=== PATIENT | female | born 1960 | race Caucasian/White ===

== ENCOUNTER → 2019-03-14 08:22 | Outpatient (BNVA) | payer MEDICAID, SELFPAY | PROVIDERS: Family Provider Family Medicine; PCP Family Medicine; Visit Provider Nurse Practitioner Psychiatric/Mental Health | DX: F31.75 Bipolar disorder, in partial remission, most recent episode depressed (principal); F41.9 Anxiety disorder, unspecified; F43.12 Post-traumatic stress disorder, chronic | CPT/HCPCS: 99214 ==

== ENCOUNTER → 2019-04-04 07:51 | Outpatient (BNVA) | payer MEDICAID, SELFPAY | PROVIDERS: Family Provider Family Medicine; PCP Family Medicine; Visit Provider Anesthesiology | DX: M47.816 Spondylosis without myelopathy or radiculopathy, lumbar region (principal); M46.1 Sacroiliitis, not elsewhere classified; M25.551 Pain in right hip; M25.552 Pain in left hip; G43.909 Migraine, unspecified, not intractable, without status migrainosus; Z79.891 Long term (current) use of opiate analgesic | CPT/HCPCS: 99214 ==

== ENCOUNTER → 2019-05-16 08:21 | Outpatient (BNVA) | payer MEDICAID, SELFPAY | PROVIDERS: Family Provider Family Medicine; PCP Family Medicine; Visit Provider Nurse Practitioner Psychiatric/Mental Health | DX: F31.75 Bipolar disorder, in partial remission, most recent episode depressed (principal); F41.9 Anxiety disorder, unspecified; F43.12 Post-traumatic stress disorder, chronic | CPT/HCPCS: 99213 ==

== ENCOUNTER → 2019-07-11 08:03 | Outpatient (BNVA) | payer MEDICAID, SELFPAY | PROVIDERS: Family Provider Family Medicine; PCP Family Medicine; Visit Provider Nurse Practitioner Psychiatric/Mental Health | DX: F31.75 Bipolar disorder, in partial remission, most recent episode depressed (principal); F41.9 Anxiety disorder, unspecified; F43.12 Post-traumatic stress disorder, chronic | CPT/HCPCS: 99212 ==

== ENCOUNTER → 2019-08-01 07:55 | Outpatient (BNVA) | payer MEDICAID, SELFPAY | PROVIDERS: Family Provider Family Medicine; PCP Family Medicine; Visit Provider Anesthesiology | DX: M54.41 Lumbago with sciatica, right side (principal); M54.42 Lumbago with sciatica, left side; M47.816 Spondylosis without myelopathy or radiculopathy, lumbar region; M54.2 Cervicalgia; Z79.891 Long term (current) use of opiate analgesic | CPT/HCPCS: 99214 ==

== ENCOUNTER → 2019-09-27 08:32 | Outpatient (BNVA) | payer MEDICAID, SELFPAY | PROVIDERS: Family Provider Family Medicine; PCP Family Medicine; Visit Provider Anesthesiology | DX: M54.42 Lumbago with sciatica, left side (principal); M54.41 Lumbago with sciatica, right side; M47.816 Spondylosis without myelopathy or radiculopathy, lumbar region; M54.2 Cervicalgia; Z79.891 Long term (current) use of opiate analgesic | CPT/HCPCS: 99213; 99214 ==

== ENCOUNTER → 2019-10-05 07:53 | Outpatient (BNVA) | payer MEDICAID, SELFPAY | PROVIDERS: Family Provider Family Medicine; PCP Family Medicine; Visit Provider Nurse Practitioner Psychiatric/Mental Health | DX: F31.75 Bipolar disorder, in partial remission, most recent episode depressed (principal); F43.12 Post-traumatic stress disorder, chronic; F41.9 Anxiety disorder, unspecified | CPT/HCPCS: 99212 ==

== ENCOUNTER → 2019-11-29 14:57 | Outpatient (BNVA) | payer MEDICAID, SELFPAY | PROVIDERS: Family Provider Family Medicine; PCP Family Medicine; Visit Provider Nurse Practitioner Family | DX: J02.9 Acute pharyngitis, unspecified (principal) | CPT/HCPCS: 87071; 87880 ==

== ENCOUNTER → 2019-12-01 09:00 | Outpatient (BNVA) | payer MEDICAID, SELFPAY | PROVIDERS: Family Provider Family Medicine; PCP Family Medicine; Visit Provider Nurse Practitioner Family | DX: Z11.59 Encounter for screening for other viral diseases (principal); J02.9 Acute pharyngitis, unspecified | CPT/HCPCS: 87635 ==

== ENCOUNTER → 2019-12-15 09:46 | Outpatient (BNVA) | payer MEDICAID, SELFPAY | PROVIDERS: Family Provider Family Medicine; PCP Family Medicine; Visit Provider Anesthesiology | DX: M47.816 Spondylosis without myelopathy or radiculopathy, lumbar region (principal); M54.2 Cervicalgia; Z79.891 Long term (current) use of opiate analgesic | CPT/HCPCS: 99213; 99214 ==

== ENCOUNTER → 2019-12-28 08:44 | Outpatient (BNVA) | payer MEDICAID, SELFPAY | PROVIDERS: Family Provider Family Medicine; PCP Family Medicine; Visit Provider Nurse Practitioner Psychiatric/Mental Health | DX: F31.75 Bipolar disorder, in partial remission, most recent episode depressed (principal); F41.9 Anxiety disorder, unspecified; F43.12 Post-traumatic stress disorder, chronic | CPT/HCPCS: 99212 ==

== ENCOUNTER → 2020-01-15 15:04 | Outpatient (BNVA) | payer MEDICAID, SELFPAY | PROVIDERS: Family Provider Family Medicine; PCP Family Medicine; Visit Provider Nurse Practitioner Family | DX: R42 Dizziness and giddiness (principal) | CPT/HCPCS: 80053; 85025 ==

== ENCOUNTER → 2020-02-14 08:06 | Outpatient (BNVA) | payer MEDICAID, SELFPAY | PROVIDERS: Family Provider Family Medicine; PCP Family Medicine; Visit Provider Anesthesiology | DX: G89.29 Other chronic pain (principal); M47.816 Spondylosis without myelopathy or radiculopathy, lumbar region; M25.551 Pain in right hip; M25.552 Pain in left hip; M54.2 Cervicalgia; G43.809 Other migraine, not intractable, without status migrainosus; M54.9 Dorsalgia, unspecified; Z79.891 Long term (current) use of opiate analgesic | CPT/HCPCS: 99214 ==

== ENCOUNTER → 2020-03-21 08:51 | Outpatient (BNVA) | payer MEDICAID, SELFPAY | PROVIDERS: Family Provider Family Medicine; PCP Family Medicine; Visit Provider Nurse Practitioner Psychiatric/Mental Health | DX: F31.75 Bipolar disorder, in partial remission, most recent episode depressed (principal); F41.9 Anxiety disorder, unspecified; F43.12 Post-traumatic stress disorder, chronic | CPT/HCPCS: 99213 ==

== ENCOUNTER → 2020-04-12 07:53 | Outpatient (BNVA) | payer MEDICAID, SELFPAY | PROVIDERS: Family Provider Family Medicine; PCP Family Medicine; Visit Provider Anesthesiology | DX: G89.29 Other chronic pain (principal); M47.816 Spondylosis without myelopathy or radiculopathy, lumbar region; M54.2 Cervicalgia; M54.9 Dorsalgia, unspecified; M25.551 Pain in right hip; M25.552 Pain in left hip; G43.809 Other migraine, not intractable, without status migrainosus; Z79.891 Long term (current) use of opiate analgesic | CPT/HCPCS: 99214 ==

== ENCOUNTER → 2020-06-11 09:12 | Outpatient (BNVA) | payer MEDICAID, SELFPAY | PROVIDERS: Family Provider Family Medicine; PCP Family Medicine; Visit Provider Anesthesiology | DX: G89.29 Other chronic pain (principal); M47.816 Spondylosis without myelopathy or radiculopathy, lumbar region; M54.9 Dorsalgia, unspecified; M54.2 Cervicalgia; G43.809 Other migraine, not intractable, without status migrainosus; Z79.891 Long term (current) use of opiate analgesic | CPT/HCPCS: 99214 ==

== ENCOUNTER → 2020-06-13 08:30 | Outpatient (BNVA) | payer MEDICAID, SELFPAY | PROVIDERS: Family Provider Family Medicine; PCP Family Medicine; Visit Provider Nurse Practitioner Psychiatric/Mental Health | DX: F31.75 Bipolar disorder, in partial remission, most recent episode depressed (principal); F41.9 Anxiety disorder, unspecified; F43.12 Post-traumatic stress disorder, chronic | CPT/HCPCS: 99213 ==

== ENCOUNTER → 2020-07-26 14:43 | Outpatient (BNVA) | payer MEDICAID, SELFPAY | PROVIDERS: Family Provider Family Medicine; PCP Family Medicine; Visit Provider Nurse Practitioner Family | DX: T14.8XXA Other injury of unspecified body region, initial encounter (principal); W55.01XA Bitten by cat, initial encounter; Z68.32 Body mass index [BMI] 32.0-32.9, adult; L03.90 Cellulitis, unspecified; A28.0 Pasteurellosis | CPT/HCPCS: 73130 ==

== ENCOUNTER → 2020-07-31 08:27 | Outpatient (BNVA) | payer MEDICAID, SELFPAY | PROVIDERS: Family Provider Family Medicine; PCP Family Medicine; Visit Provider Nurse Practitioner | DX: G89.29 Other chronic pain (principal); M25.551 Pain in right hip; M25.552 Pain in left hip; M54.2 Cervicalgia; M47.816 Spondylosis without myelopathy or radiculopathy, lumbar region; M54.9 Dorsalgia, unspecified; M46.1 Sacroiliitis, not elsewhere classified; G43.809 Other migraine, not intractable, without status migrainosus; Z79.891 Long term (current) use of opiate analgesic | CPT/HCPCS: 99212; 99213 ==

== ENCOUNTER → 2020-09-05 07:29 | Outpatient (BNVA) | payer MEDICAID, SELFPAY | PROVIDERS: Family Provider Family Medicine; PCP Family Medicine; Visit Provider Nurse Practitioner Psychiatric/Mental Health | DX: F31.75 Bipolar disorder, in partial remission, most recent episode depressed (principal); F41.9 Anxiety disorder, unspecified; F43.12 Post-traumatic stress disorder, chronic; Z79.899 Other long term (current) drug therapy | CPT/HCPCS: 99213 ==

== ENCOUNTER → 2020-10-02 09:15 | Outpatient (BNVA) | payer MEDICAID, SELFPAY | PROVIDERS: Family Provider Family Medicine; PCP Family Medicine; Visit Provider Nurse Practitioner Psychiatric/Mental Health | DX: Z79.899 Other long term (current) drug therapy (principal) | CPT/HCPCS: 80061; 83036 ==

== ENCOUNTER → 2020-10-11 08:22 | Outpatient (BNVA) | payer MEDICAID, SELFPAY | PROVIDERS: Family Provider Family Medicine; PCP Family Medicine; Visit Provider Nurse Practitioner | DX: G89.29 Other chronic pain (principal); M47.816 Spondylosis without myelopathy or radiculopathy, lumbar region; M54.2 Cervicalgia; G43.809 Other migraine, not intractable, without status migrainosus; F17.210 Nicotine dependence, cigarettes, uncomplicated; Z79.891 Long term (current) use of opiate analgesic; Z71.6 Tobacco abuse counseling | CPT/HCPCS: 99214 ==

== ENCOUNTER 2020-10-28 11:06 | Outpatient (CLI) | payer MEDICAID, SELFPAY ==
--- NOTE | 2020-10-28 11:45 | MR_ITS ---
WS: [id number] MRI LUMBAR SPINE NONCONTRAST HISTORY: M47.816 - Spondylosis without myelopathy or radiculopathy... COMPARISON: 06/11/2014 TECHNIQUE: Sagittal and axial multisequence imaging is submitted. Degenerative disc disease and osteophytosis in the mid cervical spine. L4 anterolisthesis by 6 mm similar to the prior examination. No marrow edema or fracture. Several trip ign vertebral body hemangiomas are present including T12, L2 and T9. Very mild disc space narrowing and desiccation at L4-5. Conus terminates normally at L1-2 disc level. L1-L2: Normal. L2-L3: Very minimal ligamentum flavum hypertrophy and facet arthritis. No significant stenosis. L3-L4: Very slight annular disc bulging and facet arthritis. Very mild narrowing of the foramen. L4-L5: L4 anterolisthesis causing unroofing of the disc. Mild annular disc bulging with mild to moder ate ligamentum flavum and facet arthritis. Bilateral pars defects at L4. Very mild narrowing of the f oramen and subarticular recesses. L5-S1: Mild annular disc bulging extending asymmetrically to the RIGHT. There is very slight contact on the RIGHT S1 nerve root but no displacement. Very mild RIGHT foraminal narrowing. MR/MR lumbar spine wo con* [id number] IMPRESSION: 1. Grade 1 L4 spondylolisthesis and L4 spondylolysis. Very similar to the prio r study from 06/11/2014. 2. Mild bilateral foraminal subarticular recess narrowing at L4-5. 3. Small RIGHT foraminal narrowing and slight contact on the RIGHT S1 nerve ro ot at L5-S1. 4. No high-grade stenosis.
== END 2020-10-28 11:07 | disposition home or self-care (01) ==
LOC: RADSHAW 11:11
PROVIDERS: PCP Family Medicine; Visit Provider Nurse Practitioner
DX: M47.816 Spondylosis without myelopathy or radiculopathy, lumbar region (principal); M43.16 Spondylolisthesis, lumbar region
CPT/HCPCS: 72148

== ENCOUNTER → 2020-11-26 13:06 | Outpatient (BNVA) | payer MEDICAID, SELFPAY | PROVIDERS: PCP Family Medicine; Visit Provider Anesthesiology | DX: G89.29 Other chronic pain (principal); M54.2 Cervicalgia; G43.809 Other migraine, not intractable, without status migrainosus; M47.816 Spondylosis without myelopathy or radiculopathy, lumbar region; F17.210 Nicotine dependence, cigarettes, uncomplicated; Z79.891 Long term (current) use of opiate analgesic | CPT/HCPCS: 99214 ==

== ENCOUNTER → 2020-12-05 07:55 | Outpatient (BNVA) | payer MEDICAID, SELFPAY | PROVIDERS: Family Provider Family Medicine; PCP Family Medicine; Visit Provider Nurse Practitioner Psychiatric/Mental Health | DX: F31.75 Bipolar disorder, in partial remission, most recent episode depressed (principal); F41.9 Anxiety disorder, unspecified; F43.12 Post-traumatic stress disorder, chronic | CPT/HCPCS: 99213 ==

== ENCOUNTER → 2021-02-27 08:40 | Outpatient (BNVA) | payer MEDICAID, SELFPAY | PROVIDERS: Family Provider Family Medicine; PCP Family Medicine; Visit Provider Nurse Practitioner Psychiatric/Mental Health | DX: F31.75 Bipolar disorder, in partial remission, most recent episode depressed (principal); F41.9 Anxiety disorder, unspecified; F43.12 Post-traumatic stress disorder, chronic | CPT/HCPCS: 99213 ==

== ENCOUNTER → 2021-03-12 07:50 | Outpatient (BNVA) | payer MEDICAID, SELFPAY | PROVIDERS: Family Provider Family Medicine; PCP Family Medicine; Visit Provider Anesthesiology | DX: G89.29 Other chronic pain (principal); M54.50 Low back pain, unspecified; G43.809 Other migraine, not intractable, without status migrainosus; F17.210 Nicotine dependence, cigarettes, uncomplicated; Z79.891 Long term (current) use of opiate analgesic | CPT/HCPCS: 99214 ==

== ENCOUNTER → 2021-04-15 08:25 | Outpatient (BNVA) | payer MEDICAID, SELFPAY | PROVIDERS: Family Provider Family Medicine; PCP Family Medicine; Visit Provider Nurse Practitioner Psychiatric/Mental Health | DX: F31.75 Bipolar disorder, in partial remission, most recent episode depressed (principal); F41.9 Anxiety disorder, unspecified; F43.12 Post-traumatic stress disorder, chronic | CPT/HCPCS: 99213 ==

== ENCOUNTER 2021-05-22 09:05 | Outpatient (CLI) | payer OTHER, SELFPAY ==
--- NOTE | 2021-05-22 09:38 | XR_ITS ---
WS: [id number] XR cervical spine 3V* [id number] REASON FOR EXAM: NECK PAIN FINDINGS: Normal lordosis of the cervical spine on the lateral view. No significant vertebral body compression deformity or focal lesion. Normal odontoid. Significant narrowing of the intervertebral disc spaces at C3-C4, C4-C5, C5-C6, and C6-C7. There is 2 mm of anterolisthesis of C5 in relation to C4 and C6 in relation to C5. XR/XR cervical spine 3V* [id number] IMPRESSION: Degenerative spondylosis as above.
--- NOTE | 2021-05-22 09:38 | XR_ITS ---
WS: [id number] XR lumbar spine 2-3V* [id number] REASON FOR EXAM: BACK PAIN FINDINGS: Mild rotatory scoliosis convex left on the AP. Mild straightening of the upper lumbar lordosis on the lateral. Mild biconcave compression deformities throughout the lumbar spine. Mild progression of the biconcave deformities compared to the previous examination of 06/11/2014. No focal vertebral body lesion. Moderate narrowing of the L4-L5 disc space. No spondylolysis. 8 to 9 mm of anterolisthesis of L4 on L5. Degenerative change in the facet joints L3-S1. Previous surgery L4-S1 with alteration of posterior elements. XR/XR lumbar spine 2-3V* [id number] IMPRESSION: Degenerative spondylosis of the lumbar spine as above.
== END 2021-05-22 09:06 | disposition home or self-care (01) ==
PROVIDERS: PCP Family Medicine; Visit Provider Dermatology
DX: Z02.71 Encounter for disability determination (principal); M47.816 Spondylosis without myelopathy or radiculopathy, lumbar region; M47.812 Spondylosis without myelopathy or radiculopathy, cervical region
CPT/HCPCS: 72040; 72100

== ENCOUNTER → 2021-06-19 13:37 | Outpatient (BNVA) | payer MEDICAID, SELFPAY | PROVIDERS: PCP Family Medicine; Visit Provider Family Medicine | DX: M54.2 Cervicalgia (principal); M54.9 Dorsalgia, unspecified; G89.29 Other chronic pain; G43.809 Other migraine, not intractable, without status migrainosus | CPT/HCPCS: 80307 ==

== ENCOUNTER → 2021-06-30 09:23 | Outpatient (BNVA) | payer MEDICAID, SELFPAY | PROVIDERS: PCP Family Medicine; Visit Provider Nurse Practitioner Family | DX: R30.0 Dysuria (principal) | CPT/HCPCS: 81000; 81003; 87077; 87086; 87184 ==

== ENCOUNTER → 2021-07-03 10:00 | Outpatient (BNVA) | payer MEDICAID, SELFPAY | PROVIDERS: PCP Family Medicine; Visit Provider Nurse Practitioner Psychiatric/Mental Health | DX: F31.75 Bipolar disorder, in partial remission, most recent episode depressed (principal); F41.9 Anxiety disorder, unspecified; F43.12 Post-traumatic stress disorder, chronic; M54.2 Cervicalgia; M54.9 Dorsalgia, unspecified; G89.29 Other chronic pain | CPT/HCPCS: 99213 ==

== ENCOUNTER → 2021-07-10 09:33 | Outpatient (BNVA) | payer MEDICAID, SELFPAY | PROVIDERS: PCP Family Medicine; Visit Provider Nurse Practitioner Family | DX: R30.0 Dysuria (principal) | CPT/HCPCS: 81003 ==

== ENCOUNTER → 2021-10-02 09:28 | Outpatient (BNVA) | payer MEDICAID, SELFPAY | PROVIDERS: PCP Family Medicine; Visit Provider Nurse Practitioner Psychiatric/Mental Health | DX: Z79.899 Other long term (current) drug therapy (principal); F31.75 Bipolar disorder, in partial remission, most recent episode depressed; F41.9 Anxiety disorder, unspecified | CPT/HCPCS: 80053; 80061; 83036 ==

== ENCOUNTER → 2022-09-08 14:22 | Outpatient (BNVA) | payer MEDICAID, SELFPAY | PROVIDERS: PCP Family Medicine; Visit Provider Nurse Practitioner Psychiatric/Mental Health | DX: Z79.899 Other long term (current) drug therapy (principal) | CPT/HCPCS: 80053; 80061; 83036 ==

== ENCOUNTER 2023-03-18 07:35 | Outpatient (CLI) | payer MEDICAID, SELFPAY ==
--- NOTE | 2023-03-18 07:44 | MR_ITS ---
WS: [id number] MRI LUMBAR SPINE NONCONTRAST TECHNIQUE: Sagittal T1, T2 and STIR imaging. Axial T1 and T2 imaging. CLINICAL INFORMATION: DDD, LUMBAR REGION COMPARISON: MRI 2020. FINDINGS: Mild lumbar curve. Grade 1 anterolisthesis L4 on L5 measuring 5 mm. This is stable compared to previo us. Chronic spondylolysis at this level. No high-grade central canal stenosis. 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 L1-L2: Normal. L2-L3: Mild facet arthropathy. Spinal canal and foramen are patent. L3-L4: No significant disc bulging. Mild facet arthropathy. Spinal canal is patent. Mild LEFT bony fo raminal narrowing. L4-L5: Grade 1 anterolisthesis appears stable compared to previous. Chronic spondylolysis. Slight eff acement of ventral thecal sac. Moderate facet arthropathy. Spinal canal and foramen are patent. L5-S1: Mild annular bulging with slight encroachment on the traversing RIGHT S1 nerve root. Moderate facet arthropathy. Spinal canal and foramen are patent. Visualized pelvic bony structures: Normal. Paravertebral soft tissues: Normal. Tarlov cyst in the sacrum. Incidental hemangiomas T12, L1, and L2. IMPRESSION: 1. Grade 1 anterolisthesis L4 on L5 measuring 5 to 6 mm is stable compared to previous. Chronic bila teral spondylolysis unchanged. 2. Mild LEFT L3-4 bony foraminal narrowing with moderate facet arthropathy. 3. Moderate facet arthropathy L2-L3 L3-L4 L4-L5 and L5-S1
== END 2023-03-18 07:36 | disposition home or self-care (01) ==
LOC: RAD 07:36
PROVIDERS: PCP Family Medicine; Visit Provider General Practice
DX: M51.36 Other intervertebral disc degeneration, lumbar region (principal); M47.817 Spondylosis without myelopathy or radiculopathy, lumbosacral region; M48.061 Spinal stenosis, lumbar region without neurogenic claudication
CPT/HCPCS: 72148

== ENCOUNTER → 2023-03-29 08:49 | Outpatient (BNVA) | payer MEDICAID, SELFPAY | PROVIDERS: PCP Family Medicine; Visit Provider Nurse Practitioner Family | DX: E78.5 Hyperlipidemia, unspecified (principal) | CPT/HCPCS: 80053; 80061 ==

== ENCOUNTER → 2023-05-17 09:01 | Outpatient (BNVA) | payer MEDICAID, SELFPAY | PROVIDERS: PCP Nurse Practitioner Family; Visit Provider Nurse Practitioner Family | DX: R05.9 Cough, unspecified (principal); R06.02 Shortness of breath | CPT/HCPCS: 71046 ==

== ENCOUNTER 2023-07-27 19:50 | Emergency (ER) | payer MEDICAID, SELFPAY ==
[2023-07-27 19:52] VITALS: BP 116/83; PULSE 106; RESP 18; TEMP 36.7; O2SAT 93; BMI 33.0
--- NOTE | 2023-07-27 19:53 | ECG_ITS ---
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 Measurements Intervals [place] Rate: 93 P: 41 VT: 147 QRS: 2 QRSD: 93 T: 50 QT: 376 QTc: 470 Interpretive Statements SINUS RHYTHM LOW QRS VOLTAGE IN PRECORDIAL LEADS [QRS DEFLECTION < 1.0 mV IN CHEST LEADS] Compared to ECG 10/05/2018 09:59:35 Low QRS voltage now present Incomplete right bundle-branch block no longer present Electronically Signed On 07-28-2023 10:32:19 CDT by Roni Grant M.D. [id number]
--- NOTE | 2023-07-27 19:54 | XRR_ITS ---
PROCEDURE INFORMATION: Exam: XR Chest Exam date and time: 07/27/2023 8:06 PM Age: 63 years old Clinical indication: Shortness of breath; Additional info: SOB TECHNIQUE: Imaging protocol: Radiologic exam of the chest. Views: 1 view. COMPARISON: CR XR chest 2V* [id number] 05/17/2023 9:15 AM FINDINGS: Lungs: Mild interstitial opacities in the lung bases. No consolidation. Pleural spaces: Unremarkable. No pleural effusion. No pneumothorax. Heart/Mediastinum: Unremarkable. No cardiomegaly. Diaphragm: Mild elevation of the left diaphragm. Bones/joints: Unremarkable. XR/XR chest 1V portable [id number] IMPRESSION: Suspected mild interstitial pulmonary edema.
[2023-07-27 19:56] VITALS: BP 116/83; PULSE 107; RESP 17; O2SAT 93
--- NOTE | 2023-07-27 20:03 | ED_ITS ---
HPI - SOB/Dyspnea 2 General: Chief Complaint: Shortness of Breath/Dyspnea Stated Complaint: RESP. DISTRESS Time Seen by Provider: 07/27/23 19:51 Source: patient and EMS Mode of arrival: EMS Limitations: no limitations History of Present Illness: HPI Narrative: 63-year-old female history of show cutan eous states she has been having shortness of breath for the last 3 to 4 weeks. She states that she having some right arm pain area that was worse with touch and palpation that went away on its own but she continue have some dyspnea she did receive a breathing treatment and Solu-Medrol around feels improved. Denies any cough or fever Associated symptoms: Deny abdominal pain, chest pain, fever(s), nausea or vomiting Review of Systems 2 Const: Denies: fever(s) or chills ENMT: Denies: throat pain or dental pain Card: Denies: chest pain Resp: Reports: dyspnea GI: Denies: abdominal pain, nausea, vomiting or diarrhea : Denies: dysuria Musc: Denies: neck pain or back pain Skin/Breast: Denies: rash Neuro: Denies: headache(s) PFSH ED 2 PFSH: Medical History Bipolar disorder, in full remission, most recent episode depressed Psychiatric care Cervicogenic migraine Chronic hip pain Chronic neck and back pain Encounter for long-term (current) use of NSAIDs Encounter for long-term opiate analgesic use Acute midline low back pain Acute hip pain, bilateral Acute neck pain Arthritis of facet joint of lumbar spine Sacroiliitis Surgical History Hx of hysterectomy, total History of carpal tunnel surgery Family History Other Cancer Diabetes Lung disease Social History Smoking and tobacco/nicotine status: current every day tobacco/nicotine user cigarettes Packs smoked per day: 0.5 Years cigarettes smoked: 20 Quit status (tobacco/nicotine): has tried quititng Second hand smoke exposure: No Alcohol intake: never Substance/Drug Use: never Physical Exam 2 Const: COMMON NORMALS: no acute distress, patient oriented x3 and healthy appearing HENMT: COMMON NORMALS: normocephalic and atraumatic HEAD & SCALP: n ormocephalic and atraumatic Eye: COMMON NORMALS: Equal, round and reactive pupils present and EOMs intact bilaterally PUPIL: Yes Equal, round and reactive pupils present Neck/C-Spine: COMMON NORMALS: full ROM and supple Chest: COMMONS NORMALS: normal inspection of the chest and normal palpation of entire chest wall Resp: COMMON NORMALS: normal respiratory effort, No retractions, No use of accessory muscles and clear to auscultation bilaterally AUSCULTATION: clear to auscultation bilaterally Cardio: COMMON NORMALS: regular rate, regular rhythm and No murmurs present (Cardio) RATE: regular rate RHYTHM: regular rhythm Extremity: COMMON NORMALS: normal to inspection and full ROM Neuro: COMMON NORMALS: patient oriented x3, moves all extremities and no focal motor deficits Psych: COMMON NORMALS: mental status grossly normal, Normal thought process present and cooperative THOUGHT PROCESS: Normal thought process present Skin: COMMON NORMALS: no rashes or lesions noted and no wounds GENERAL SKIN EXAM: no rashes or lesions noted Course 2 Vital Signs: Vital signs: Vital Signs Temperature 98.1 F 07/27/23 19:52 Pulse Rate 89 07/27/23 20:56 Respiratory Rate 15 07/27/23 20:56 Blood Pressure 120/90 07/27/23 20:56 Pulse Oximetry 90 07/27/23 20:56 Oxygen Delivery Me thod Room Air 07/27/23 20:56 MDM - SOB/Dyspnea Medical Decision Making Patient presents here with cough congestion likely bronchitis blood work here is all negative she is well-appearing here she stable for discharge she is follow-up with PCP and return if worsening she understands agrees to plan she has no signs of ACS or pulmonary embolism Medical Records I reviewed the patient's medical records. Lab Data I reviewed the patient's lab results. 07/27/23 20:04 07/27/23 20:04 Labs/Radiology: Radiology Impressions Chest X-Ray 07/27/23 19:54 IMPRESSION: Suspected mild interstitial pulmonary edema. Laboratory Results WBC 7.87 10^3/uL (3.29-11.43) 07/27/23 20:04 RBC 4.76 10^6/uL (3.85-5.65) 07/27/23 20:04 Hgb 14.00 g/dL (11.27-16.99) 07/27/23 20:04 Hct 42.1 % (36-47) 07/27/23 20:04 MCV 88.4 fl (85-98) 07/27/23 20:04 MCH 29.4 pg (27-33) 07/27/23 20:04 MCHC 33.3 g/dL (30-55) 07/27/23 20:04 RDW 12.4 % (12.1-15.1) 07/27/23 20:04 Plt Count 266 10^3/cmm (157-399) 07/27/23 20:04 MPV 8.9 fL (7.4-10.4) 07/27/23 20:04 Neut % (Auto) 53.8 % 07/27/23 20:04 Lymph % (Auto) 37.9 % 07/27/23 20:04 [place] % (Auto) 6.2 % 07/27/23 20:04 Eos % (Auto) 1.5 % 07/27/23 20:04 Baso % (Auto) 0.5 % 07/27/23 20:04 Neut # (Auto) 4.23 10^3/uL (1.8-7.7) 07/27/23 20:04 Lymph # (Auto) 3.0 10^3/uL (0.8-4.8) 07/27/23 20:04 [place] # (Auto) 0.5 10^3/uL (0.2-0.9) 07/27/23 20:04 Eos # (Auto) 0.1 10^3/uL (0.0-0.8) 07/27/23 20:04 Baso # (Auto) 0.0 10^3/uL (0.0-0.1) 07/27/23 20:04 Nucleated RBC % (auto) 0 % 07/27/23 20:04 Nucleated RBCs # 0.0 /100WBC 07/27/23 20:04 PT 13.50 SECONDS (12.1-14.9) 07/27/23 20:04 INR 1.00 (0.8-1.2) 07/27/23 20:04 Sodium 136 mmol/L (136-145) 07/27/23 20:04 Potassium 3.5 mmol/L (3.5-5.1) 07/27/23 20:04 Chloride 100 mmol/L (98-107) 07/27/23 20:04 Carbon Dioxide 25 mmol/L (22-29) 07/27/23 20:04 Anion Gap 14.5 (5-19) 07/27/23 20:04 BUN 11 mg/dL (8-23) 07/27/23 20:04 Creatinine 0.6 mg/dL (0.5-0.9) 07/27/23 20:04 GFR Calculation 101.0 mL/min (90-130) 07/27/23 20:04 Glucose 100 mg/dL (65-115) 07/27/23 20:04 Calculated Osmolality 281 mOsm/kg (285-295) L 07/27/23 20:04 Calcium 8.7 mg/dL (8.5-10.5) 07/27/23 20:04 Total Bilirubin 0.3 mg/dL (0.15-1.2) 07/27/23 20:04 AST 20 U/L (0-32) 07/27/23 20:04 ALT 26 U/L (0-33) 07/27/23 20:04 Alkaline Phosphatase 104 U/L (35-105) 07/27/23 20:04 Total Protein 7.0 g/dL (6.6-8.7) 07/27/23 20:04 Albumin 3.7 g/dL (3.5-5.2) 07/27/23 20:04 Globulin 3.3 g/dL (1.3-4.6) 07/27/23 20:04 Lipase 50 U/L (13-60) 07/27/23 20:04 All radiology interpretation(s) finalized by discharge EKG Data EKG 1: I personally reviewed and interpreted this EKG as follows: EKG Interpretation Date: 07/27/23 EKG interpretation time: 20:22 Interpretation: nsr hr [address] or t wave abnormalities qrs 93 qtc 427 Discharge Plan Discharge Patient Disposition: Home Clinical Impression: Bronchitis, COPD (chronic obstructive pulmonary disease) Condition: Stable Prescriptions: New Zithromax Z-Edis 250 mg tablet See Rx Instructions PO .COMPLEX Qty: 6 0RF Rx Instructions: take 500 mg today (day 1), then 250 mg for 4 days (days 2-5) prednisone 50 mg tablet 50 mg PO DAILY Qty: 5 0RF No Action epinephrine 0.3 mg/0.3 mL auto-injector 0.3 mg IM ONCE baclofen 20 mg tablet 20 mg PO TID PRN (Reason: spasms) 30 Days Qty: 90 0RF tramadol 50 mg tablet 100 mg PO QID PRN (Reason: pain) 30 Days Qty: 180 0RF Rx Instructions: fill on or after 03/20/21 and 04/18/21 prazosin 2 mg capsule 2 mg PO .QHS Qty: 30 1RF Rx Instructions: take one capsule by mouth daily at bedtime buspirone 10 mg tablet 20 mg PO BID 30 Days Qty: 120 1RF Rx Instructions: Take two tablets by mouth twice a day-morning and afternoon venlafaxine 75 mg tablet 150 mg PO BID Qty: 120 1RF Rx Instructions: Take two tablets in the morning and afternoon at 2 PM atorvastatin 40 mg tablet See Rx Instructions .ROUTE .COMPLEX Qty: 90 1RF Dose Instruction: TAKE ONE TABLET BY MOUTH DAILY Rx Instructions: TAKE ONE TABLET BY MOUTH DAILY Anoro Ellipta 62.5-25 mcg/actuation blister with device 1 inh inhalation Q24H Qty: 60 3RF quetiapine 50 mg tablet 50 mg PO .q hs Qty: 30 2RF Rx Instructions: Take one tablet daily at bedtime; stop other doses of this medication albuterol sulfate [Ventolin HFA] 90 mcg/actuation HFA aerosol inhaler See Rx Instructions .ROUTE .COMPLEX Qty: 18 2RF Dose Instruction: INHALE TWO PUFFS BY MOUTH EVERY 4 HOURS NEEDED SHORTNESS OF BREATH OR WHEEZING Rx Instructions: INHALE TWO PUFFS BY MOUTH EVERY 4 HOURS NEEDED SHORTNESS OF BREATH OR WHEEZING rizatriptan 10 mg tablet See Rx Instructions .ROUTE .COMPLEX Qty: 20 0RF Dose Instruction: TAKE ONE TABLET BY MOUTH ONSET OF HEADACHE IF NO RELIEF MAY REPEAT ONE TABLET AFTER ATLEAST TWO HOURS MAX THREE TABLETS IN 24 HOUR Rx Instructions: TAKE ONE TABLET BY MOUTH ONSET OF HEADACHE IF NO RELIEF MAY REPEAT ONE TABLET AFTER ATLEAST TWO HOURS MAX THREE TABLETS IN 24 HOUR Discharge Orders: Discharge ED (Routine); Ordered 07/27/23 Ordered By: Padilla Collins Referrals: Symone Kaur NP [Primary Care Provider] - 4-7 days Discharge Diet: Advance as tolerated Discharge Activity: Resume usual activity Patient Instructions: Acute Bronchitis (ED) Coding Level of Care Code ED 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
[2023-07-27 20:10] LABS: Basophils % 0.5 %; Eosinophils # 0.1 10^3/uL (0.0-0.8); Eosinophils % 1.5 %; Hematocrit 42.1 % (36-47); Lymphocytes % 37.9 %; Mean Corpuscular HGB Conc 33.3 g/dL (30-55); Mean Corpuscular Hemoglobin 29.4 pg (27-33); Mean Corpuscular Volume 88.4 fl (85-98); Mean Platelet Volume 8.9 fL (7.4-10.4); Monocytes # 0.5 10^3/uL (0.2-0.9); Monocytes % 6.2 %; Neutrophils # 4.23 10^3/uL (1.8-7.7); Neutrophils % 53.8 %; Nucleated Red Blood Cells % 0 %; Platelet Count 266 10^3/cmm (157-399); Red Blood Count 4.76 10^6/uL (3.85-5.65); Red Cell Distribution Width 12.4 % (12.1-15.1); White Blood Count 7.87 10^3/uL (3.29-11.43)
[2023-07-27 20:26] VITALS: BP 116/79; PULSE 90; RESP 20; O2SAT 90
[2023-07-27 20:31] LABS: Albumin Level 3.7 g/dL (3.5-5.2); Alkaline Phosphatase 104 U/L (35-105); Anion Gap 14.5 (5-19); Aspartate Amino Transferase 20 U/L (0-32); Blood Urea Nitrogen 11 mg/dL (8-23); Calcium 8.7 mg/dL (8.5-10.5); Carbon Dioxide 25 mmol/L (22-29); Chloride 100 mmol/L (98-107); Creatinine Clr Calc Pharmacy 110.2566; Globulin 3.3 g/dL (1.3-4.6); Glucose 100 mg/dL (65-115); Lipase 50 U/L (13-60); Osmolality Calculated 281 mOsm/kg (285-295); Potassium 3.5 mmol/L (3.5-5.1); Sodium 136 mmol/L (136-145); Total Bilirubin 0.3 mg/dL (0.15-1.2)
[2023-07-27 20:42] LABS: Alanine Aminotransferase 26 U/L (0-33)
[2023-07-27 20:56] VITALS: BP 120/90; PULSE 89; RESP 15; O2SAT 90
== END 2023-07-27 21:40 | disposition home or self-care (01) ==
PROVIDERS: Emergency Provider Emergency Medicine; PCP Nurse Practitioner Family
DX: J44.89 Other specified chronic obstructive pulmonary disease (principal); Z79.899 Other long term (current) drug therapy; F17.210 Nicotine dependence, cigarettes, uncomplicated
CPT/HCPCS: 36415; 71045; 80053; 83690; 85025; 85610; 93005; 99285

== ENCOUNTER → 2023-09-06 10:44 | Outpatient (BNVA) | payer OTHER, SELFPAY | PROVIDERS: PCP Nurse Practitioner Family; Referring Provider Nurse Practitioner Family; Visit Provider Internal Medicine Cardiovascular Disease | DX: R06.02 Shortness of breath (principal); Z87.891 Personal history of nicotine dependence | CPT/HCPCS: 99203 ==

== ENCOUNTER 2023-10-05 06:34 | Outpatient (CLI) | payer MEDICAID, SELFPAY ==
[2023-10-05 07:13] VITALS: BMI 33.7
--- NOTE | 2023-10-05 07:13 | ECG_ITS ---
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 Interpretive Statements NAME OF STUDY: LEXISCAN SESTAMIBI STRESS TEST INDICATION: SOB, PROCEDURE: At the baseline, the EKG revealed normal sinus rhythm with incomplete right bundle branch block pattern. Normal ST Ts.. The baseline heart was bpm with a blood pressue of mm of Hg Lexiscan was infused over a period of 20 seconds. A total of 0.4 milligrams of Lexiscan was infused. The stress phase was continued for a total of 5 minutes. Heart rate at the end of the stress phase was 94 bpm with a blood pressure 134/84 mm of Hg. The EKG at the peak infusion revealed no significant changes. Sestamibi was injected 20 seconds after the Lexiscan infusion. Heart rate at the end of the recovery phase was 92 bpm with a blood pressure of 126/83 mm of Hg. CONCLUSION: 1. No significant EKG changes with the LexiScan infusion 2. No LexiScan induced chest pain or cardiac arrhythmia 3. Normal blood pressure and heart rate response 4. Sestamibi/sestamibi perfusion scan pending; see separate report. Electronically Signed On 10-08-2023 8:32:14 CDT by Anurag Anderson M.D. [id number]
--- NOTE | 2023-10-05 07:14 | NMCV_ITS ---
NM delmar perf SPECT r/s* [id number] Ratna Mercado Age: 63 Gender: F : 1960 Exam Date: 10/05/2023 07:41 Ordering Phys: Regan Marshall MD ([email or web address]) Technologist: ROMULO Aguilar Exam Location: [facility] Indications: SOB STRESS TEST [facility] IMAGE PROTOCOL Rest/Stress 1 Lexiscan Day Radiopharmaceutical Dose (mCi) Administration Site Administered by Rest: Tc-99m 10.9 IV ROMULO Aguilar Sestamibi Stress:Tc-99m 32.6 IV ROMULO Aguilar Sestamibi Rest: 05-Oct-2023 60 Discovery 630 Stress: 05-Oct-2023 30 Discovery 630 0.4mg Lexiscan. Images obtained in supine and prone position. SPECT RESULTS Technical Quality: Good Raw Data Analysis: Breast attenuation Image Corrections: No attenuation or motion correction applied Summed Stress Score: 1 Summed Rest Score: 6 Summed Difference Score: 0 PERFUSION FINDINGS Patchy areas of minimal to moderately decreased tracer uptake in the apical regions with no significant reversibility. FUNCTIONAL RESULTS (calculated via Gated SPECT) Stress Image LV EF (%): 78 Stress EDV (mL):78 TID: 1.18 Stress ESV (mL):17 FUNCTIONAL FINDINGS: Segmental wall motion analysis revealing no gross wall motion abnormalities IMPRESSIONS 1. Myocardial perfusion imaging revealing patchy areas of persistent decreased tracer uptake in the apical regions suggestive of myocardial scarring versus attenuation artifact 2. Normal LV ejection fraction of 78%. 3. LV wall motion analysis revealing no gross wall motion abnormalities. 4. Normal LV volume Slightly elevated transient ischemic dilatation ratio 1.18 may suggest endocardial ischemia. However the positive predictive value of this finding is limited. Clinical correlation is recommended. No similar previous studies are available for comparison Dr Anurag Anderson MD [facility] (Electronically Signed) Final Date: 05 October 2023 20:49 S
[2023-10-05] MEDS: regadenoson 0.4 Mg/5 ml Syringe IVP (08:53)
[2023-10-05 09:04] VITALS: BP 126/83; PULSE 96
== END 2023-10-05 06:35 | disposition home or self-care (01) ==
PROVIDERS: PCP Nurse Practitioner Family; Visit Provider Internal Medicine Cardiovascular Disease
DX: R06.02 Shortness of breath (principal); R94.39 Abnormal result of other cardiovascular function study
CPT/HCPCS: 36415; 78452; 93017; 96374; A9500; J2785

== ENCOUNTER 2023-12-17 10:13 | Outpatient (CLI) | payer MEDICAID, SELFPAY ==
--- NOTE | 2023-12-17 11:00 | MR_ITS ---
WS: [id number] MRI HEAD WITHOUT CONTRAST TECHNIQUE: Sagittal T1, T2 axial, T2 axial FLAIR, axial and coronal T1 images, axial susceptibility w eighted imaging, axial diffusion weighted images, and coronal T2 images were obtained. CLINICAL INFORMATION: G43.909 - Migraine, unspecified, not intractable, without... COMPARISON: None. FINDINGS: No evidence of restricted diffusion to suggest acute ischemia. Ventricular system and basal cisterns are patent. Mild small vessel changes. Mild parenchymal volume loss. Normal posterior fossa. Normal v ascular flow voids at the skull base. No extra-axial fluid collections. No evidence of mass or mass e ffect. Paranasal sinuses are well aerated. Mastoid air cells are well aerated. Normal posterior nasop harynx. Retention cyst or polyp RIGHT maxillary sinus measuring 1.5 x 1.3 cm. Normal optic chiasm and pituitary infundibulum. Mild symmetric atrophy temporal lobes and hippocampal formations. Punctate focus of hemosiderin in the LEFT frontal lobe. No other foci of hemosiderin on the susceptibly weighted images. MR/MR head wo con* [id number] IMPRESSION: 1. No evidence of restricted diffusion to suggest acute ischemia. 2. Mild small vessel changes. Mild parenchymal volume loss. 3. Mild symmetric atrophy temporal lobes and hippocampal formations. 4. Single punctate focus of hemosiderin in the LEFT frontal lobe. 5. No other acute findings.
== END 2023-12-17 10:14 | disposition home or self-care (01) ==
LOC: RAD 10:14
PROVIDERS: PCP Nurse Practitioner Family; Visit Provider Nurse Practitioner Family
DX: G43.909 Migraine, unspecified, not intractable, without status migrainosus (principal); R94.02 Abnormal brain scan
CPT/HCPCS: 70551

== ENCOUNTER → 2024-01-31 09:15 | Outpatient (BNVA) | payer MEDICAID, SELFPAY | PROVIDERS: PCP Nurse Practitioner Family; Visit Provider Nurse Practitioner Family | DX: E78.5 Hyperlipidemia, unspecified (principal) | CPT/HCPCS: 80053; 80061 ==

== ENCOUNTER 2024-03-06 11:24 | Emergency (ER) | payer MEDICAID, SELFPAY ==
[2024-03-06] VITALS (39 sets, daily range): BP systolic 95–150; BP diastolic 53–104; PULSE 87–212; RESP 12–25; TEMP 36.6; O2SAT 85–100
--- NOTE | 2024-03-06 11:30 | ECG_ITS ---
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1960 Requested By: Padilla Collins Order Number: [id number] Reading MD: JAMES WELLS Measurements Intervals [place] Rate: 202 P: 0 NE: 0 QRS: 30 QRSD: 93 T: 62 QT: 208 QTc: 382 Interpretive Statements SUPRAVENTRICULAR TACHYCARDIA INCOMPLETE RIGHT BUNDLE BRANCH BLOCK [90+ ms QRS DURATION, TERMINAL R IN V1/V2, 40+ ms S IN I/aVL/V4/V5/V6] NONSPECIFIC ST & T-WAVE ABNORMALITY CRITICAL TEST RESULT Compared to ECG 07/27/2023 20:22:56 Incomplete right bundle-branch block now present T-wave abnormality now present Sinus rhythm no longer present Electronically Signed On 03-06-2024 23:11:47 MACHINE SHOP APPRENTICE by JAMES WELLS [id number]
--- NOTE | 2024-03-06 11:30 | XRR_ITS ---
PROCEDURE INFORMATION: Exam: XR Chest Exam date and time: 03/06/2024 12:04 PM Age: 63 years old Clinical indication: Other: Palpitations; Patient HX: HX of colon cancer TECHNIQUE: Imaging protocol: Radiologic exam of the chest. Views: 1 view. COMPARISON: CR XR chest 1V portable [id number] 07/27/2023 8:06 PM FINDINGS: Lungs: Unremarkable. No consolidation. Pleural spaces: Unremarkable. No pleural effusion. No pneumothorax. Heart/Mediastinum: Unremarkable. No cardiomegaly. Bones/joints: Unremarkable. XR/XR chest 1V portable [id number] IMPRESSION: No acute findings.
--- NOTE | 2024-03-06 11:50 | ECG_ITS ---
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1960 Requested By: Padilla Collins Order Number: [id number] Rajinder MD: JAMES WELLS Measurements Intervals [place] Rate: 111 P: 72 CT: 144 QRS: 21 QRSD: 93 T: 64 QT: 321 QTc: 437 Interpretive Statements SINUS TACHYCARDIA INCOMPLETE RIGHT BUNDLE BRANCH BLOCK [90+ ms QRS DURATION, TERMINAL R IN V1/V2, 40+ ms S IN I/aVL/V4/V5/V6] ABNORMAL RHYTHM ECG Compared to ECG 03/06/2024 11:35:03 Supraventricular tachycardia no longer present T-wave abnormality no longer present Electronically Signed On 03-06-2024 23:19:29 OFFICE MACHINE TECHNICIAN by JAMES WELLS [id number]
--- NOTE | 2024-03-06 11:50 | W.ED.GENADLT ---
HPI - General Adult General: Chief complaint: Arrhythmia/Palpitations Stated complaint: Rapid HR sent from clinic Time Seen by Provider: 03/06/24 11:30 Source: patient Mode of arrival: ambulatory Limitations: no limitations History of Present Illness: 63-year-old female who states that she started having palpitations roughly 1 to 2 hours ago states that she did went to a clinic was found to have a heart rate in the 180s appears to be in SVT here. She denies any chest pain or shortness of breath just states she feels like her heart is racing. No history of SVT in the past. Associated symptoms: Reports palpitations; Deny chest pain, dyspnea, headache(s), nausea, rash or vomiting Related Data Home Medications Medication Instructions Recorded Confirmed epinephrine 0.3 mg/0.3 mL 0.3 mg IM ONCE 03/13/19 03/06/24 injection, auto-injector atorvastatin 40 mg tablet (Lipitor) 40 mg PO DAILY 03/06/24 03/06/24 Previous Rx's Medication Instructions Recorded tramadol 50 mg tablet 100 mg (2 x 50 mg) PO QID PRN pain 07/17/21 30 days #180 tabs buspirone 10 mg tablet 20 mg (2 x 10 mg) PO BID 30 days 11/29/23 #120 tabs prazosin 2 mg capsule 2 mg PO .QHS #30 caps 11/29/23 quetiapine 50 mg tablet 50 mg PO .q hs #30 tabs 11/29/23 venlafaxine 75 mg tablet 150 mg (2 x 75 mg) PO BID #120 tabs 11/29/23 pantoprazole 40 mg tablet,delayed 40 mg PO DAILY #30 tabs 01/31/24 release (Protonix) rizatriptan 10 mg tablet See Rx Instructions .Route 02/14/24 .COMPLEX #20 ea Allergies Allergy/AdvReac Type Severity Reaction Status Date / Time bee pollen Allergy Unknown Verified 03/06/24 12:03 oats Allergy Unknown Verified 03/06/24 12:03 ragweed pollen Allergy Unknown Verified 03/06/24 12:03 venom-wasp Allergy swelling Verified 03/06/24 12:03 Review of Systems Const: Denies: fever(s), chills, body aches or change in appetite ENMT: Denies: throat pain or dental pain Card: Reports: palpitations; Denies: chest pain Resp: Denies: dyspnea GI: Denies: abdominal pain, nausea, vomiting or diarrhea Musc: Denies: neck pain or back pain Skin/Breast: Denies: rash Neuro: Denies: headache(s) PFSH ED PFSH: Medical History Bipolar disorder, in full remission, most recent episode depressed Psychiatric care Cervicogenic migraine Chronic hip pain Chronic neck and back pain Encounter for long-term (current) use of NSAIDs Encounter for long-term opiate analgesic use Acute midline low back pain Acute hip pain, bilateral Acute neck pain Arthritis of facet joint of lumbar spine Sacroiliitis Surgical History Hx of hysterectomy, total History of carpal tunnel surgery Family History Other Cancer Diabetes Lung disease Social History Smoking and tobacco/nicotine status: former use of tobacco/nicotine Quit status (tobacco/nicotine): has quit using Year quit tobacco: 2021 Second hand smoke exposure: No Alcohol intake: never Substance/Drug Use: never Physical Exam Const: COMMON NORMALS: no acute distress, patient oriented x3 and healthy appearing HENMT: COMMON NORMALS: normocephalic and atraumatic HEAD & SCALP: normocephalic and atraumatic Neck/C-Spine: COMMON NORMALS: full ROM and supple Chest: COMMONS NORMALS: normal inspection of the chest Resp: COMMON NORMALS: normal respiratory effort, No retractions, No use of accessory muscles and clear to auscultation bilaterally AUSCULTATION: clear to auscultation bilaterally Cardio: COMMON NORMALS: No murmurs present (Cardio) RATE: tachycardic Extremity: COMMON NORMALS: normal to inspection and full ROM Neuro: COMMON NORMALS: patient oriented x3, moves all extremities and no focal motor deficits Psych: COMMON NORMALS: mental status grossly normal, Normal thought process present and cooperative THOUGHT PROCESS: Normal thought process present Skin: COMMON NORMALS: no rashes or lesions noted and no wounds GENERAL SKIN EXAM: no rashes or lesions noted Course Vital Signs: Vital signs: Vital Signs Temperature 97.8 F 03/06/24 11:32 Pulse Rate 105 H 03/06/24 12:20 Respiratory Rate 24 H 03/06/24 12:20 Blood Pressure 114/84 03/06/24 12:20 Pulse Oximetry 98 03/06/24 12:20 Oxygen Delivery Me thod Room Air 03/06/24 11:32 MDM - General Adult Medical Decision Making Patient presents here with SVT she is converted here she has no pain no signs of PE we will get her follow-up with cardiology she is stable for discharge. Medical Records I reviewed the patient's medical records. Lab Data I reviewed the patient's lab results. 03/06/24 11:45 03/06/24 11:45 Radiology Impressions Chest X-Ray 03/06/24 11:30 IMPRESSION: No acute findings. Laboratory Results WBC 10.35 10^3/uL (3.29-11.43) 03/06/24 11:45 RBC 5.23 10^6/uL (3.85-5.65) 03/06/24 11:45 Hgb 15.30 g/dL (11.27-16.99) 03/06/24 11:45 Hct 47.5 % (36-47) H 03/06/24 11:45 MCV 90.8 fl (85-98) 03/06/24 11:45 MCH 29.3 pg (27-33) 03/06/24 11:45 MCHC 32.2 g/dL (30-55) 03/06/24 11:45 RDW 13.1 % (12.1-15.1) 03/06/24 11:45 Plt Count 437 10^3/cmm (157-399) H 03/06/24 11:45 MPV 9.1 fL (7.4-10.4) 03/06/24 11:45 Neut % (Auto) 63.1 % 03/06/24 11:45 Lymph % (Auto) 27.8 % 03/06/24 11:45 [place] % (Auto) 5.7 % 03/06/24 11:45 Eos % (Auto) 2.3 % 03/06/24 11:45 Baso % (Auto) 0.6 % 03/06/24 11:45 Neut # (Auto) 6.53 10^3/uL (1.8-7.7) 03/06/24 11:45 Lymph # (Auto) 2.9 10^3/uL (0.8-4.8) 03/06/24 11:45 [place] # (Auto) 0.6 10^3/uL (0.2-0.9) 03/06/24 11:45 Eos # (Auto) 0.2 10^3/uL (0.0-0.8) 03/06/24 11:45 Baso # (Auto) 0.1 10^3/uL (0.0-0.1) 03/06/24 11:45 Nucleated RBC % (auto) 0 % 03/06/24 11:45 Nucleated RBCs # 0.0 /100WBC 03/06/24 11:45 Sodium 137 mmol/L (136-145) 03/06/24 11:45 Potassium 3.8 mmol/L (3.5-5.1) 03/06/24 11:45 Chloride 96 mmol/L (98-107) L 03/06/24 11:45 Carbon Dioxide 23 mmol/L (22-29) 03/06/24 11:45 Anion Gap 21.8 (5-19) H 03/06/24 11:45 BUN 17 mg/dL (8-23) 03/06/24 11:45 Creatinine 1.1 mg/dL (0.5-0.9) H 03/06/24 11:45 GFR Calculation 50.2 mL/min (90-130) L 03/06/24 11:45 Glucose 183 mg/dL (65-115) H 03/06/24 11:45 Calculated Osmolality 290 mOsm/kg (285-295) 03/06/24 11:45 Calcium 9.7 mg/dL (8.5-10.5) 03/06/24 11:45 Total Bilirubin 0.3 mg/dL (0.15-1.2) 03/06/24 11:45 AST 29 U/L (0-32) 03/06/24 11:45 ALT 33 U/L (0-33) 03/06/24 11:45 Alkaline Phosphatase 142 U/L (35-105) H 03/06/24 11:45 Total Protein 7.9 g/dL (6.6-8.7) 03/06/24 11:45 Albumin 4.2 g/dL (3.5-5.2) 03/06/24 11:45 Globulin 3.7 g/dL (1.3-4.6) 03/06/24 11:45 TSH 2.97 uIU/mL (0.27-4.20) 03/06/24 11:45 All radiology interpretation(s) finalized by discharge EKG Data EKG 1: I personally reviewed and interpreted this EKG as follows: EKG interpretation date: 03/06/24 EKG interpretation time: 11:35 Interpretation: svt hr [address] elevation qrs 93 qtc 308 Computer generated interpretation: Chest X-Ray 03/06/24 11:30 IMPRESSION: No acute findings. EKG 2: I personally reviewed and interpreted this EKG as follows: EKG interpretation date: 03/06/24 EKG interpretation time: 11:57 Interpretation: sinus tach hr [address] elevation qrs 144 qtc 387 Computer generated interpretation: Chest X-Ray 03/06/24 11:30 IMPRESSION: No acute findings. Discharge Plan Discharge Patient Disposition: Home Clinical Impression: Supraventricular tachycardia Condition: Stable Prescriptions: No Action epinephrine 0.3 mg/0.3 mL auto-injector 0.3 mg IM ONCE tramadol 50 mg tablet 100 mg PO QID PRN (Reason: pain) 30 Days Qty: 180 0RF buspirone 10 mg tablet 20 mg PO BID 30 Days Qty: 120 3RF Rx Instructions: Take two tablets by mouth twice a day-morning and afternoon prazosin 2 mg capsule 2 mg PO .QHS Qty: 30 3RF Rx Instructions: take one capsule by mouth daily at bedtime quetiapine 50 mg tablet 50 mg PO .q hs Qty: 30 3RF Rx Instructions: Take one tablet daily at bedtime venlafaxine 75 mg tablet 150 mg PO BID Qty: 120 3RF Rx Instructions: Take two tablets in the morning and afternoon at 2 PM pantoprazole [Protonix] 40 mg tablet,delayed release (DR/EC) 40 mg PO DAILY Qty: 30 0RF Rx Instructions: take 30 minutes to one hour prior to breakfast rizatriptan 10 mg tablet See Rx Instructions .ROUTE .COMPLEX Qty: 20 0RF Dose Instruction: TAKE ONE TABLET BY MOUTH ONSET OF HEADACHE IF NO RELIEF MAY REPEAT ONE TABLET AFTER AT LEAST TWO HOURS MAX THREE TABLETS IN 24 HOURS Rx Instructions: TAKE ONE TABLET BY MOUTH ONSET OF HEADACHE IF NO RELIEF MAY REPEAT ONE TABLET AFTER AT LEAST TWO HOURS MAX THREE TABLETS IN 24 HOURS atorvastatin [Lipitor] 40 mg tablet 40 mg PO DAILY Rx Instructions: TAKE ONE TABLET BY MOUTH ONCE DAILY Discharge Orders: Discharge ED (Routine); Ordered 03/06/24 Ordered By: Padilla Collins Referrals: Symone Kaur, PUBLIC ADMINISTRATION PROFESSOR [Primary Care Provider] - 4-7 days Discharge Diet: Advance as tolerated Discharge Activity: Resume usual activity Patient Instructions: Supraventricular Tachycardia (ED) Coding Level of Care Code ED Chemical Weigher for Jamarcus Barrera
[2024-03-06] MEDS: adenosine 3 mg/mL SDV 2mL 6 MG IVP (11:55)
[2024-03-06] MEDS: adenosine 3 mg/mL SDV 2mL 12 MG IVP (11:58)
[2024-03-06 12:07] LABS: Basophils # 0.1 10^3/uL (0.0-0.1); Basophils % 0.6 %; Eosinophils # 0.2 10^3/uL (0.0-0.8); Eosinophils % 2.3 %; Hematocrit 47.5 % (36-47); Lymphocytes # 2.9 10^3/uL (0.8-4.8); Lymphocytes % 27.8 %; Mean Corpuscular HGB Conc 32.2 g/dL (30-55); Mean Corpuscular Hemoglobin 29.3 pg (27-33); Mean Corpuscular Volume 90.8 fl (85-98); Mean Platelet Volume 9.1 fL (7.4-10.4); Monocytes # 0.6 10^3/uL (0.2-0.9); Monocytes % 5.7 %; Neutrophils # 6.53 10^3/uL (1.8-7.7); Neutrophils % 63.1 %; Nucleated Red Blood Cells % 0 %; Platelet Count 437 10^3/cmm (157-399); Red Blood Count 5.23 10^6/uL (3.85-5.65); Red Cell Distribution Width 13.1 % (12.1-15.1); White Blood Count 10.35 10^3/uL (3.29-11.43)
[2024-03-06 12:38] LABS: Alanine Aminotransferase 33 U/L (0-33); Albumin Level 4.2 g/dL (3.5-5.2); Alkaline Phosphatase 142 U/L (35-105); Anion Gap 21.8 (5-19); Aspartate Amino Transferase 29 U/L (0-32); Blood Urea Nitrogen 17 mg/dL (8-23); Calcium 9.7 mg/dL (8.5-10.5); Carbon Dioxide 23 mmol/L (22-29); Chloride 96 mmol/L (98-107); Globulin 3.7 g/dL (1.3-4.6); Glomerular Filtration Rate 50.2 mL/min (90-130); Glucose 183 mg/dL (65-115); Osmolality Calculated 290 mOsm/kg (285-295); Potassium 3.8 mmol/L (3.5-5.1); Sodium 137 mmol/L (136-145); Thyroid Stimulating Hormone 2.97 uIU/mL (0.27-4.20); Total Bilirubin 0.3 mg/dL (0.15-1.2); Total Protein 7.9 g/dL (6.6-8.7)
--- NOTE | 2024-03-08 08:34 | DCPLANNER ---
Message sent to Cardiology for follow up on SVT
== END 2024-03-06 14:48 | disposition home or self-care (01) ==
PROVIDERS: Emergency Provider Emergency Medicine; PCP Nurse Practitioner Family
DX: I47.10 Supraventricular tachycardia, unspecified (principal); Z87.891 Personal history of nicotine dependence
CPT/HCPCS: 36415; 71045; 80053; 84443; 85025; 93005; 96374; 99285; J0153

== ENCOUNTER → 2024-03-23 13:22 | Outpatient (BNVA) | payer MEDICAID, SELFPAY | PROVIDERS: PCP Nurse Practitioner Family; Visit Provider Nurse Practitioner Family | DX: I47.10 Supraventricular tachycardia, unspecified (principal); G47.30 Sleep apnea, unspecified; R06.09 Other forms of dyspnea | CPT/HCPCS: 99214 ==

== ENCOUNTER → 2024-03-27 08:50 | Outpatient (BNVA) | payer OTHER, SELFPAY | PROVIDERS: PCP Nurse Practitioner Family; Visit Provider Nurse Practitioner Psychiatric/Mental Health | DX: F31.76 Bipolar disorder, in full remission, most recent episode depressed (principal); F43.12 Post-traumatic stress disorder, chronic; F41.9 Anxiety disorder, unspecified; Z79.899 Other long term (current) drug therapy | CPT/HCPCS: 83036 ==

== ENCOUNTER 2024-03-30 15:16 | Observation (INO) | payer MEDICAID, SELFPAY ==
[2024-03-30] VITALS (91 sets, daily range): BP systolic 101–153; BP diastolic 51–89; PULSE 78–200; RESP 13–29; TEMP 36.7–36.8; O2SAT 85–98; BMI 34.4
[2024-03-30] MEDS: adenosine 3 mg/mL SDV 2mL 6 MG IVP (15:30)
[2024-03-30] MEDS: adenosine 3 mg/mL SDV 2mL 12 MG IVP ×2 (15:31→15:34)
--- NOTE | 2024-03-30 15:43 | XRR_ITS ---
PROCEDURE INFORMATION: Exam: XR Chest Exam date and time: 03/30/2024 3:46 PM Age: 63 years old Clinical indication: Shortness of breath; Sob/abnormal ekg/ abnormal lab work. , HX of colon cancer; Additional info: Svt TECHNIQUE: Imaging protocol: Radiologic exam of the chest. Views: 1 view. COMPARISON: CR XR chest 1V portable [id number] 03/06/2024 12:04 PM FINDINGS: Lungs: Unremarkable. No consolidation. Pleural spaces: Unremarkable. No pleural effusion. No pneumothorax. Heart/Mediastinum: Unremarkable. No cardiomegaly. Bones/joints: Unremarkable. XR/XR chest 1V portable [id number] IMPRESSION: No acute findings.
[2024-03-30] MEDS: dilTIAZem 5 mg/mL SDV 5 mL 20 MG IVP (15:45)
[2024-03-30] MEDS: dilTIAZem 100 MG in sodium chloride 0.9% (add-van) 100 ML IV (15:53)
--- NOTE | 2024-03-30 15:56 | W.ED.ARRPALP ---
HPI - Arrhythmia/Palpitations General: Chief Complaint: Arrhythmia/Palpitations Stated Complaint: sob/abnormal ekg/ abnormal labs History of Present Illness: 63-year-old female who presents to the emergency room with rapid heart rate. She was at the pain clinic and was getting a refill of her medications her heart rate was noted to be in the 200s and she was directed to the emergency room on triage she was noted to have SVT and was directed to the trauma room emergently. She is not having any chest pain lightheadedness or dizziness she does have a sensation of the rapid heart rate. Related Data Home Medications ?Medication ?Instructions ?Recorded ?Confirmed epinephrine 0.3 mg/0.3 mL 0.3 mg IM ONCE 03/13/19 03/30/24 injection, auto-injector atorvastatin 40 mg tablet (Lipitor) 40 mg PO DAILY 03/06/24 03/30/24 Previous Rx's ?Medication ?Instructions ?Recorded tramadol 50 mg tablet 100 mg (2 x 50 mg) PO QID PRN pain 07/17/21 30 days #180 tabs buspirone 10 mg tablet 20 mg (2 x 10 mg) PO BID 30 days 11/29/23 #120 tabs prazosin 2 mg capsule 2 mg PO .QHS #30 caps 11/29/23 quetiapine 50 mg tablet 50 mg PO .q hs #30 tabs 11/29/23 venlafaxine 75 mg tablet 150 mg (2 x 75 mg) PO BID #120 tabs 11/29/23 pantoprazole 40 mg tablet,delayed 40 mg PO DAILY #30 tabs 01/31/24 release (Protonix) rizatriptan 10 mg tablet See Rx Instructions .Route 02/14/24 .COMPLEX #20 ea umeclidinium 62.5 mcg-vilanterol 1 inh inhalation Q24H #60 ea 03/29/24 25 mcg/actuation powdr for inhalation (Anoro Ellipta) Allergies Allergy/AdvReac Type Severity Reaction Status Date / Time bee pollen Allergy Unknown Verified 03/27/24 07:53 oats Allergy Unknown Verified 03/27/24 07:53 ragweed pollen Allergy Unknown Verified 03/27/24 07:53 venom-wasp Allergy swelling Verified 03/27/24 07:53 Review of Systems Const: Denies: fever(s) or chills Card: Denies: chest pain Resp: Denies: dyspnea GI: Denies: abdominal pain : Denies: dysuria, urinary frequency or urinary urgency Musc: Denies: neck pain or back pain Skin/Breast: Denies: rash PFSH ED PFSH: Medical History Bipolar disorder, in full remission, most recent episode depressed Psychiatric care Cervicogenic migraine Chronic hip pain Chronic neck and back pain Encounter for long-term (current) use of NSAIDs Encounter for long-term opiate analgesic use Acute midline low back pain Acute hip pain, bilateral Acute neck pain Arthritis of facet joint of lumbar spine Sacroiliitis Surgical History Hx of hysterectomy, total History of carpal tunnel surgery Family History Other Cancer Diabetes Lung disease Social History Smoking and tobacco/nicotine status: former use of tobacco/nicotine Quit status (tobacco/nicotine): has quit using Year quit tobacco: 2021 Second hand smoke exposure: No Alcohol intake: never Substance/Drug Use: never Physical Exam Const: GENERAL APPEARANCE: cooperative ORIENTATION/CONSCIOUSNESS: Yes awake, Yes oriented to person, Yes oriented to place and Yes oriented to time HENMT: COMMON NORMALS: normocephalic, atraumatic and hearing grossly normal bilaterally HEAD & SCALP: normocephalic and atraumatic Resp: COMMON NORMALS: normal respiratory effort, No retractions, No use of accessory muscles and clear to auscultation bilaterally AUSCULTATION: clear to auscultation bilaterally Cardio: COMMON NORMALS: No murmurs present (Cardio) RATE: tachycardic RHYTHM: abnormal rhythm (SVT) GI: COMMON NORMALS: Soft to palpation and No hepatosplenomegaly present AUSCULTATION: Yes normoactive bowel sounds PALPATION: Yes Soft to palpation, No Tenderness to palpation present (GI), No Guarding due to palpation present (GI) and Yes No hepatosplenomegaly present Extremity: COMMON NORMALS: normal to inspection, capillary refill normal, no clubbing, cyanosis or edema, no calf tenderness and no pedal edema Neuro: SENSORIUM/ORIENTATION: Yes oriented to person, Yes oriented to place and Yes oriented to time Skin: COMMON NORMALS: no rashes or lesions noted GENERAL SKIN EXAM: no rashes or lesions noted Course Vital Signs: Vital signs: Vital Signs Temperature 98.2 F 03/31/24 04:35 Pulse Rate 76 03/31/24 05:53 Respiratory Rate 20 H 03/31/24 04:35 Blood Pressure 103/70 03/31/24 04:35 Pulse Oximetry 93 03/31/24 04:35 Oxygen Delivery Me thod Nasal Cannula 03/30/24 23:47 Oxygen Flow Rate 2 03/30/24 23:47 MDM - Arrhythmia/Palpitations Medical Decision Making Patient initially noted to be in SVT initially given 6 mg of adenosine with no results. With 12 mg she did slow down to the low 100s for a few seconds then rebounded to an elevated rate. After this another 12 mg was given since she was stable she again slowed down to the 100 range but rebounded to 160s and 70s again. Labs ordered we will start the patient on Cardizem for rate control. Rate improved on Cardizem. Will admit patient she will need to have something initiated for rate control and titrate off the Cardizem. Unfortunately with each of the last 2 visits she has been more recalcitrant to conversion with adenosine. Rate is controlled at this time on a Cardizem and she is feeling much better. Medical Records I reviewed the patient's medical records. Lab Data I reviewed the patient's lab results. 03/30/24 15:30 03/31/24 02:17 Radiology Impressions Chest X-Ray 03/30/24 15:43 IMPRESSION: No acute findings. Laboratory Results WBC 9.71 10^3/uL (3.29-11.43) 03/30/24 15:30 RBC 4.37 10^6/uL (3.85-5.65) 03/30/24 15:30 Hgb 12.60 g/dL (11.27-16.99) 03/30/24 15:30 Hct 41.8 % (36-47) 03/30/24 15:30 MCV 95.7 fl (85-98) 03/30/24 15:30 MCH 28.8 pg (27-33) 03/30/24 15:30 MCHC 30.1 g/dL (30-55) 03/30/24 15:30 RDW 13.9 % (12.1-15.1) 03/30/24 15: Plt Count 345 10^3/cmm (157-399) 03/30/24 15: MPV 9.3 fL (7.4-10.4) 03/30/24 15:30 Neut % (Auto) 51.7 % 03/30/24 15:30 Lymph % (Auto) 36.0 % 03/30/24 15:30 [place] % (Auto) 7.1 % 03/30/24 15:30 Eos % (Auto) 4.2 % 03/30/24 15: Baso % (Auto) 0.6 % 03/30/24 15: Neut # (Auto) 5.01 10^3/uL (1.8-7.7) 03/30/24 15: Lymph # (Auto) 3.5 10^3/uL (0.8-4.8) 03/30/24 15:30 [place] # (Auto) 0.7 10^3/uL (0.2-0.9) 03/30/24 15:30 Eos # (Auto) 0.4 10^3/uL (0.0-0.8) 03/30/24 15:30 Baso # (Auto) 0.1 10^3/uL (0.0-0.1) 03/30/24 15: Nucleated RBC % (auto) 0 % 03/30/24 15: Nucleated RBCs # 0.0 /100WBC 03/30/24 15:30 Sodium 139 mmol/L (136-145) 03/30/24 15:30 Potassium 5.0 mmol/L (3.5-5.1) 03/30/24 15: Chloride 98 mmol/L (98-107) 03/30/24 15: Carbon Dioxide 25 mmol/L (22-29) 03/30/24 15: Anion Gap 21.0 (5-19) H 03/30/24 15:30 BUN 16 mg/dL (8-23) 03/30/24 15:30 Creatinine 0.8 mg/dL (0.5-0.9) 03/30/24 15:30 GFR Calculation 72.4 mL/min (90-130) L 03/30/24 15:30 Glucose 153 mg/dL (65-115) H 03/30/24 15:30 Calculated Osmolality 292 mOsm/kg (285-295) 03/30/24 15:30 Calcium 9.0 mg/dL (8.5-10.5) 03/30/24 15:30 Total Bilirubin 0.2 mg/dL (0.15-1.2) 03/30/24 15:30 AST 33 U/L (0-32) H 03/30/24 15:30 ALT 35 U/L (0-33) H 03/30/24 15:30 Alkaline Phosphatase 124 U/L (35-105) H 03/30/24 15:30 Troponin T Baseline < 6 ng/L (0-10) 03/30/24 15:30 Total Protein 7.4 g/dL (6.6-8.7) 03/30/24 15:30 Albumin 3.8 g/dL (3.5-5.2) 03/30/24 15:30 Globulin 3.6 g/dL (1.3-4.6) 03/30/24 15:30 TSH 2.28 uIU/mL (0.27-4.20) 03/30/24 15:30 All radiology interpretation(s) finalized by discharge Discharge Plan Discharge Patient Disposition: Placed in Observation Admit Provider: Sukh Ramirez Clinical Impression: SVT (supraventricular tachycardia) Coding Level of Care Code ED Heavy Equipment Rental Manager for Jamarcus Barrera
[2024-03-30 16:01] LABS: Basophils # 0.1 10^3/uL (0.0-0.1); Basophils % 0.6 %; Eosinophils # 0.4 10^3/uL (0.0-0.8); Eosinophils % 4.2 %; Hematocrit 41.8 % (36-47); Lymphocytes # 3.5 10^3/uL (0.8-4.8); Mean Corpuscular HGB Conc 30.1 g/dL (30-55); Mean Corpuscular Hemoglobin 28.8 pg (27-33); Mean Corpuscular Volume 95.7 fl (85-98); Mean Platelet Volume 9.3 fL (7.4-10.4); Monocytes # 0.7 10^3/uL (0.2-0.9); Monocytes % 7.1 %; Neutrophils # 5.01 10^3/uL (1.8-7.7); Neutrophils % 51.7 %; Nucleated Red Blood Cells % 0 %; Platelet Count 345 10^3/cmm (157-399); Red Blood Count 4.37 10^6/uL (3.85-5.65); Red Cell Distribution Width 13.9 % (12.1-15.1); White Blood Count 9.71 10^3/uL (3.29-11.43)
[2024-03-30 16:27] LABS: Alanine Aminotransferase 35 U/L (0-33); Albumin Level 3.8 g/dL (3.5-5.2); Alkaline Phosphatase 124 U/L (35-105); Blood Urea Nitrogen 16 mg/dL (8-23); Carbon Dioxide 25 mmol/L (22-29); Chloride 98 mmol/L (98-107); Creatinine Clr Calc Pharmacy 82.8988; Globulin 3.6 g/dL (1.3-4.6); Glomerular Filtration Rate 72.4 mL/min (90-130); Glucose 153 mg/dL (65-115); Osmolality Calculated 292 mOsm/kg (285-295); Sodium 139 mmol/L (136-145); Thyroid Stimulating Hormone 2.28 uIU/mL (0.27-4.20); Total Bilirubin 0.2 mg/dL (0.15-1.2); Total Protein 7.4 g/dL (6.6-8.7)
[2024-03-30 16:33] LABS: Aspartate Amino Transferase 33 U/L (0-32)
--- NOTE | 2024-03-30 17:03 | ECG_ITS ---
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: : 1960 Requested By: Josiah Collins Order Number: [id number] Reading MD: JAMES WELLS Measurements Intervals [place] Rate: 191 P: 0 CO: 0 QRS: 41 QRSD: 91 T: 69 QT: 228 QTc: 406 Interpretive Statements SUPRAVENTRICULAR TACHYCARDIA MINIMAL ST DEPRESSION [0.025+ mV ST DEPRESSION] CRITICAL TEST RESULT Compared to ECG 03/06/2024 11:57:58 ST (T wave) deviation now present Sinus tachycardia no longer present Incomplete right bundle-branch block no longer present Electronically Signed On 04-01-2024 19:29:18 MERCHANDISING CONSULTANT by JAMES WELLS [id number]
[2024-03-30 17:33] LABS: Troponin(5th) Baseline < 6 ng/L (0-10)
--- NOTE | 2024-03-30 18:58 | ECG_ITS ---
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: : 1960 Requested By: Josiah Collins Order Number: [id number] Reading MD: JAMES WELLS Measurements Intervals [place] Rate: 91 P: 9 UT: 128 QRS: 7 QRSD: 100 T: 53 QT: 361 QTc: 446 Interpretive Statements SINUS RHYTHM INCOMPLETE RIGHT BUNDLE BRANCH BLOCK [90+ ms QRS DURATION, TERMINAL R IN V1/V2, 40+ ms S IN I/aVL/V4/V5/V6] Compared to ECG 03/30/2024 15:25:20 Incomplete right bundle-branch block now present Supraventricular tachycardia no longer present ST (T wave) deviation no longer present Electronically Signed On 04-01-2024 19:34:33 [employer]UGBOAT P[employer]OT by JAMES WELLS [email or web address] [email or web address]
[2024-03-30 20:35] LABS: Troponin 5 2HR 8.73 ng/L (0-10); Troponin 5 2HR Delta 2.73001 ABS# (0-10)
[2024-03-30] MEDS: TRAMadol 50 mg Tablet 100 MG PO (21:03)
[2024-03-30] MEDS: quetiapine 25 mg Tablet 50 MG PO (21:04)
[2024-03-30] MEDS: dilTIAZem 30 mg Tablet PO (21:04)
[2024-03-30] MEDS: prazosin 1 mg Capsule 2 MG PO (21:04)
--- NOTE | 2024-03-30 21:32 | PM.HP ---
Providers/Chief Complaint Admitting Physician: Sukh Ramirez MD Primary Care Provider: Symone Kaur NP Chief Complaint: sob/abnormal ekg/ abnormal labs History of Present Illness Ratna Mercado is a 63 year old female who was at her pain physicians clinic today when Dr. Schaefer called and said she was in SVT with rapid ventricular response and to go to the ER. She saw Dr. Rosales who tried adenosine 6, 12 and 12 and she did not convert. Patient was started on a diltiazem drip and heart rate came down from 160s and 170s and she was admitted to cardiac stepdown on diltiazem drip. Potassium was 5 magnesium not checked Review of Systems Narrative: General No fevers chills weight gain weight loss Cardiovascular no chest pain palpitations or edema she could not feel the heart racing and felt fine Respiratory no recent illness no cough fevers flu GI no nausea vomiting diarrhea no dysuria Neuro no seizures or strokes Musculoskeletal no myalgias or pain Psychiatric patient states that she takes Effexor 2 of the 75 mg tablets twice a day for depression and it is doing well. Her depression is under control she has never had problems with it before Medications/Allergies Home Medications ?Medication ?Instructions ?Recorded ?Confirmed ?Last Taken ?Type epinephrine 0.3 mg/0.3 mL 0.3 mg IM ONCE 03/13/19 03/30/24 Unknown History injection, auto-injector tramadol 50 mg tablet 100 mg (2 x 50 mg) PO QID PRN pain 07/17/21 03/30/24 03/30/24 Rx 30 days #180 tabs buspirone 10 mg tablet 20 mg (2 x 10 mg) PO BID 30 days 11/29/23 03/30/24 03/30/24 Rx #120 tabs prazosin 2 mg capsule 2 mg PO .QHS #30 caps 11/29/23 03/30/24 03/29/24 Rx quetiapine 50 mg tablet 50 mg PO .q hs #30 tabs 11/29/23 03/30/24 03/29/24 Rx venlafaxine 75 mg tablet 150 mg (2 x 75 mg) PO BID #120 tabs 11/29/23 03/30/24 03/30/24 Rx pantoprazole 40 mg tablet,delayed 40 mg PO DAILY #30 tabs 01/31/24 03/30/24 03/30/24 Rx release (Protonix) rizatriptan 10 mg tablet See Rx Instructions .Route 02/14/24 03/30/24 Unknown Rx .COMPLEX #20 ea atorvastatin 40 mg tablet (Lipitor) 40 mg PO DAILY 03/06/24 03/30/24 03/30/24 History umeclidinium 62.5 mcg-vilanterol 1 inh inhalation Q24H #60 ea 03/29/24 03/30/24 Unknown Rx 25 mcg/actuation powdr for inhalation (Anoro Ellipta) Allergies Allergy/AdvReac Type Severity Reaction Status Date / Time bee pollen Allergy Unknown Verified 03/27/24 07:53 oats Allergy Unknown Verified 03/27/24 07:53 ragweed pollen Allergy Unknown Verified 03/27/24 07:53 venom-wasp Allergy swelling Verified 03/27/24 07:53 PFSH Acute PFSH: Medical History Bipolar disorder, in full remission, most recent episode depressed Psychiatric care Cervicogenic migraine Chronic hip pain Chronic neck and back pain Encounter for long-term (current) use of NSAIDs Encounter for long-term opiate analgesic use Acute midline low back pain Acute hip pain, bilateral Acute neck pain Arthritis of facet joint of lumbar spine Sacroiliitis Surgical History Hx of hysterectomy, total History of carpal tunnel surgery Family History Other Cancer Diabetes Lung disease Social History Smoking and tobacco/nicotine status: former use of tobacco/nicotine Quit status (tobacco/nicotine): has quit using Year quit tobacco: 2021 Second hand smoke exposure: No Alcohol intake: never Substance/Drug Use: never Vitals/I&O/Wt Last Vital Signs Temp 98.0 F 03/30/24 15:19 Pulse 93 03/30/24 20:05 Resp 26 H 03/30/24 20:05 BP 101/68 03/30/24 20:05 Pulse Ox 93 03/30/24 20:05 O2 Del Method Room Air 03/30/24 19:42 Weight last 48 hrs Weight 96.87 kg Weight 93.44 kg Physical Exam Narrative: General Well-developed well-nourished obese female in no acute cardiopulmonary distress CV regular rate and rhythm no loud murmurs Lungs clear to auscultation bilaterally no rales or wheezes Abdomen positive bowel sounds soft nontender Calves no tenderness or pretibial edema Mentation alert and oriented x 3 Data 03/30/24 15:30 03/30/24 15:30 A&P Assessment and plan (1) SVT (supraventricular tachycardia): The patient has refractory SVT. Effexor can cause tachycardia arrhythmia and so I am going to decrease that dose to 75 mg twice a day prior to discharge. In the meantime that medication will be held. She has converted to sinus rhythm so diltiazem drip is stopped and 60 mg Cardizem every 6 hours will be given Echocardiogram for the morning (2) Bipolar disorder, in full remission, most recent episode depressed: Mentally has been stable without depression or decompensation. She is willing to try 75 mg twice a day Effexor. Follow-up with your PCP or psychiatrist. PDMP PDMP Reviewed: Not Reviewed Attestations Medical Necessity Statement*: Anticipate the patient will be in the hospital for less than 2 midnights for adjustment of her medications and control of SVT Coding Level of Care Code 87866 Diagnoses SVT (supraventricular tachycardia) I47.10 Bipolar disorder, in full remission, most recent episode depressed F31.76 Time Spent (min) 55
[2024-03-30 22:33] LABS: Troponin 5 6HR 12.66 ng/L (0-10); Troponin 5 6HR Delta 6.66001 ng/L (0-12)
[2024-03-31 03:26] LABS: Anion Gap 13.7 (5-19); Blood Urea Nitrogen 16 mg/dL (8-23); Calcium 8.7 mg/dL (8.5-10.5); Carbon Dioxide 26 mmol/L (22-29); Chloride 102 mmol/L (98-107); Creatinine Clr Calc Pharmacy 84.4578; Glomerular Filtration Rate 72.4 mL/min (90-130); Glucose 112 mg/dL (65-115); Magnesium 2.1 mg/dL (1.7-2.3); Osmolality Calculated 288 mOsm/kg (285-295); Phosphorus 4.2 mg/dL (2.5-4.5); Potassium 3.7 mmol/L (3.5-5.1); Sodium 138 mmol/L (136-145)
[2024-03-31 04:35] VITALS: BP 103/70; PULSE 83; RESP 20; TEMP 36.8; O2SAT 93
--- NOTE | 2024-03-31 04:42 | PC.NURSE ---
2200 dose cardizem held due to BP 93/62.
[2024-03-31 05:53] VITALS: PULSE 76; BMI 34.2
[2024-03-31 07:45] VITALS: BP 101/70; PULSE 85; RESP 19; TEMP 37.1; O2SAT 95
--- NOTE | 2024-03-31 08:00 | USCV_ITS ---
Ratna Mercado Age: 63 Gender: F : 1960 Exam Date: 03/31/2024 02:46 Ordering Phys: Sukh Ramirez MD Technologist: ESTELA [place]am Location[place] [facility] [place]: Refractory SVT BP: 101 / 71 HR: 79 Rhythm: Sinus Technical Quality: Adequate MEASUREMENTS (Male / Female) Normal Values 2D ECHO LV Diastolic Diameter PLAX 4.0 cm 4.2 - 5.9 / 3.9 - 5.3 cm IVS Diastolic Thickness 1.6 cm 0.6 - 1.0 / 0.6 - 0.9 cm IVS Systolic Thickness 2.1 cm LVPW Diastolic Thickness 1.3 cm 0.6 - 1.0 / 0.6 - 0.9 cm LVPW Systolic Thickness 2.1 cm LVOT Diameter 2.1 cm LV Ejection Fraction 2D Teich 52.2 % LV Ejection Fraction MOD 4C 47.8 % LV Ejection Fraction MOD 2C 48.5 % LV Ejection Fraction 2C AL 47.6 % LA Diameter 4.0 cm Aorta at Sinotubular Diameter 2.8 cm IVC Diameter 1.4 cm M-MODE LA Ao Ratio MM 1.2 AV Cusp Separation MM 2.0 cm DOPPLER AV Peak Velocity 149.0 cm/s LVOT Peak Velocity 91.0 cm/s AV Area Cont Eq vti 2.3 cm squared AV Area Cont Eq pk 2.1 cm squared MV Peak Velocity 86.0 cm/s MV Area PHT 3.7 cm squared Mitral E to A Ratio 1.0 TV Peak E Velocity 55.0 cm/s PV Peak Velocity 92.0 cm/s FINDINGS Left Ventricle Normal left ventricular size, systolic function and wall thickness, with no regional wall motion abnormalities. Left ventricular ejection fraction is estimated at 60 %. Grade I/IV diastolic dysfunction (abnormal relaxation filling pattern), normal to mildly elevated filling pressures. Right Ventricle The right ventricle is normal in size and function. Right Atrium The right atrium is normal in size. Left Atrium The left atrium is normal in size. Mitral Valve Structurally normal mitral valve without significant stenosis or prolapse. There is no mitral regurgitation. Aortic Valve Moderate aortic valve calcification. Mild aortic valve stenosis, mean gradient 3.9 mmHg, RODERICK 2.3 cm squared. Mild aortic valve regurgitation. Tricuspid Valve Trace tricuspid valve regurgitation. Pulmonic Valve Trace pulmonary valve regurgitation. Pericardium Normal pericardium without effusion. Aorta Normal ascending aorta dimension. IVC The inferior vena cava appears normal. CONCLUSIONS Normal left ventricular size, systolic function and wall thickness, with no regional wall motion abnormalities. Left ventricular ejection fraction is estimated at 60 %. Grade I/IV diastolic dysfunction (abnormal relaxation filling pattern), normal to mildly elevated filling pressures. Moderate aortic valve calcification. Mild aortic valve stenosis, mean gradient 3.9 mmHg, RODERICK 2.3 cm squared. Mild aortic valve regurgitation. Structurally normal mitral valve without significant stenosis or prolapse. There is no mitral regurgitation. There is no pericardial effusion. Right atrial pressure is around 5 mm of mercury. Natty Salcedo MD (Electronically Signed) Final Date: 31 March 2024 17:52 S
[2024-03-31] MEDS: TRAMadol 50 mg Tablet 100 MG PO (09:14)
[2024-03-31] MEDS: BuSPIRONE 10 mg Tablet 20 MG PO (09:15)
[2024-03-31] MEDS: atorvastatin 40 mg Tablet PO (09:15)
[2024-03-31] MEDS: pantoprazole DR 40 mg Tablet PO (09:15)
--- NOTE | 2024-03-31 10:54 | P.DS_ITS ---
Discharge Providers Date of Admission: 03/30/24 16:42 Date of Discharge: March 31, 2024 Attending Provider at Admission: Sukh Ramirez MD Attending Provider at Discharge: Sukh Ramirez MD Consults: None Primary Care Provider: Symone Kaur NP Diagnoses at Discharge Discharge Diagnosis (1) SVT (supraventricular tachycardia): Details from hospital stay: Patient with in the last year several runs of SVT this time difficult to convert and failed adenosine 6, 12, 12 in the emergency department with Dr. Rosales. Patient was started on diltiazem drip and did convert to sinus rhythm. Looking at her medications the Effexor can cause tachycardia and tachy arrhythmia. Patient states she has been on that dose for 5 years but with increased age despite increased weight it is possible the this medication is just become higher concentration. I lowered the Effexor to 75 mg twice a day. Patient also is on prazosin which lowers blood pressure and hindered our goal diltiazem leading to a heart rate of 70. Instead I was only able to give 120 mg CD and likely will have a baseline heart rate 85-90. I counseled the patient that she can do low level exercise for cardiovascular health walking a mile several times a week for goal heart rate of around 110 with exercise. Consider weaning prazosin to 1 mg and increasing diltiazem to 240 mg CD daily if needed. She has follow-up with cardiology next week Patient does not drink alcohol she has never been a smoker coffee is 1 cup a day no other caffeine. The drink is a [employer] latte. I did discuss with her that avoiding that would decrease SVT as well as allow weight loss which I recommended Status: Acute (2) Bipolar disorder, in full remission, most recent episode depressed: Details from hospital stay: Stable see med change. Monitor for 1 to 2 months ideally without additional medication change Status: Chronic (3) Obesity (BMI 30.0-34.9): Details from hospital stay: Recommended that the patient try to eat less than her BMI which would be about 1600 samuel and try to lose 2 pounds a week Status: Acute Reason for Visit Reason for Visit: sob/abnormal ekg/ abnormal labs Brief History: Heart rate 170 and SVT Hospital Course Hospital Course 63-year-old female with bipolar disorder on high-dose venlafaxine 150 mg twice a day. She has been admitted and venlafaxine decreased to 75 mg twice a day due to potential cause of SVT. Additionally started diltiazem drip and then changed to diltiazem 60 mg orally but her heart rate though controlled only to 80 resulted in blood pressure of 105 systolic. She was sent home on diltiazem CD100 20 mg daily. Chest x-ray no heart failure echocardiogram has been done but results not back yet EKG initially SVT heart rate 191 now sinus rhythmWith incomplete right bundle branch block and a heart rate 91 Physical Exam Narrative: General Well-nourished obese female in no acute cardiopulmonary stress CV regular rate and rhythm Lungs clear to auscultation bilaterally Abdomen positive bowel sounds soft nontender Calves no edema Mood and affect appropriate Discharge Data Studies Completed and Pending Completed Studies During Hospitalization Category Date Time Status XR chest 1V portable [id number] Stat Exams 03/30/24 15:43 Completed Pending at discharge Category Date Time Status US echo complete [CV. echo complete* [id number]] Routine Ultrasound 03/31/24 08:00 Taken Radiology Impressions Chest X-Ray 03/30/24 15:43 IMPRESSION: No acute findings. Laboratory Results WBC 9.71 10^3/uL (3.29-11.43) 03/30/24 15:30 RBC 4.37 10^6/uL (3.85-5.65) 03/30/24 15:30 Hgb 12.60 g/dL (11.27-16.99) 03/30/24 15:30 Hct 41.8 % (36-47) 03/30/24 15:30 MCV 95.7 fl (85-98) 03/30/24 15:30 MCH 28.8 pg (27-33) 03/30/24 15:30 MCHC 30.1 g/dL (30-55) 03/30/24 15:30 RDW 13.9 % (12.1-15.1) 03/30/24 15:30 Plt Count 345 10^3/cmm (157-399) 03/30/24 15:30 MPV 9.3 fL (7.4-10.4) 03/30/24 15:30 Neut % (Auto) 51.7 % 03/30/24 15:30 Lymph % (Auto) 36.0 % 03/30/24 15:30 [place] % (Auto) 7.1 % 03/30/24 15:30 Eos % (Auto) 4.2 % 03/30/24 15:30 Baso % (Auto) 0.6 % 03/30/24 15:30 Neut # (Auto) 5.01 10^3/uL (1.8-7.7) 03/30/24 15:30 Lymph # (Auto) 3.5 10^3/uL (0.8-4.8) 03/30/24 15:30 [place] # (Auto) 0.7 10^3/uL (0.2-0.9) 03/30/24 15:30 Eos # (Auto) 0.4 10^3/uL (0.0-0.8) 03/30/24 15:30 Baso # (Auto) 0.1 10^3/uL (0.0-0.1) 03/30/24 15:30 Nucleated RBC % (auto) 0 % 03/30/24 15:30 Nucleated RBCs # 0.0 /100WBC 03/30/24 15:30 Sodium 138 mmol/L (136-145) 03/31/24 02:17 Potassium 3.7 mmol/L (3.5-5.1) 03/31/24 02:17 Chloride 102 mmol/L (98-107) 03/31/24 02:17 Carbon Dioxide 26 mmol/L (22-29) 03/31/24 02:17 Anion Gap 13.7 (5-19) 03/31/24 02:17 BUN 16 mg/dL (8-23) 03/31/24 02:17 Creatinine 0.8 mg/dL (0.5-0.9) 03/31/24 02:17 GFR Calculation 72.4 mL/min (90-130) L 03/31/24 02:17 Glucose 112 mg/dL (65-115) 03/31/24 02:17 Calculated Osmolality 288 mOsm/kg (285-295) 03/31/24 02:17 Calcium 8.7 mg/dL (8.5-10.5) 03/31/24 02:17 Phosphorus 4.2 mg/dL (2.5-4.5) 03/31/24 02:17 Magnesium 2.1 mg/dL (1.7-2.3) 03/31/24 02:17 Total Bilirubin 0.2 mg/dL (0.15-1.2) 03/30/24 15:30 AST 33 U/L (0-32) H 03/30/24 15:30 ALT 35 U/L (0-33) H 03/30/24 15:30 Alkaline Phosphatase 124 U/L (35-105) H 03/30/24 15:30 Troponin T Baseline < 6 ng/L (0-10) 03/30/24 15:30 Troponin T 120 Minute 8.73 ng/L (0-10) 03/30/24 20:07 Delta Troponin T 2.79152 ABS# (0-10) 03/30/24 20:07 Troponin T Hi Sens 6Hr 12.66 ng/L (0-10) H 03/30/24 22:04 Troponin T Hi Sens 6Hr Delta 6.95641 ng/L (0-12) 03/30/24 22:04 Total Protein 7.4 g/dL (6.6-8.7) 03/30/24 15:30 Albumin 3.8 g/dL (3.5-5.2) 03/30/24 15:30 Globulin 3.6 g/dL (1.3-4.6) 03/30/24 15:30 TSH 2.28 uIU/mL (0.27-4.20) 03/30/24 15:30 Vitals Last Vital Signs Temp 98.8 F 03/31/24 07:45 Pulse 85 03/31/24 07:45 Resp 19 H 03/31/24 07:45 BP 101/70 03/31/24 07:45 Pulse Ox 95 03/31/24 07:45 O2 Del Method Nasal Cannula 03/31/24 07:45 O2 Flow Rate 2 03/30/24 23:47 Discharge Plan Discharge Patient Disposition: Home Condition: Stable Prescriptions: New diltiazem HCl [Tiazac] 120 mg capsule,extended release 24 hr 120 mg PO DAILY Qty: 30 1RF venlafaxine 75 mg tablet 75 mg PO BID Qty: 60 0RF diltiazem HCl [Tiazac] 120 mg capsule,extended release 24 hr 120 mg PO DAILY Qty: 30 1RF venlafaxine 75 mg tablet 75 mg PO BID Qty: 60 0RF Continued epinephrine 0.3 mg/0.3 mL auto-injector 0.3 mg IM ONCE tramadol 50 mg tablet 100 mg PO QID PRN (Reason: pain) 30 Days Qty: 180 0RF buspirone 10 mg tablet 20 mg PO BID 30 Days Qty: 120 3RF Rx Instructions: Take two tablets by mouth twice a day-morning and afternoon prazosin 2 mg capsule 2 mg PO .QHS Qty: 30 3RF Rx Instructions: take one capsule by mouth daily at bedtime quetiapine 50 mg tablet 50 mg PO .q hs Qty: 30 3RF Rx Instructions: Take one tablet daily at bedtime pantoprazole [Protonix] 40 mg tablet,delayed release (DR/EC) 40 mg PO DAILY Qty: 30 0RF Rx Instructions: take 30 minutes to one hour prior to breakfast Anoro Ellipta 62.5-25 mcg/actuation blister with device 1 inh inhalation Q24H Qty: 60 11RF rizatriptan 10 mg tablet See Rx Instructions .ROUTE .COMPLEX Qty: 20 0RF Dose Instruction: TAKE ONE TABLET BY MOUTH ONSET OF HEADACHE IF NO RELIEF MAY REPEAT ONE TABLET AFTER AT LEAST TWO HOURS MAX THREE TABLETS IN 24 HOURS Rx Instructions: TAKE ONE TABLET BY MOUTH ONSET OF HEADACHE IF NO RELIEF MAY REPEAT ONE TABLET AFTER AT LEAST TWO HOURS MAX THREE TABLETS IN 24 HOURS atorvastatin [Lipitor] 40 mg tablet 40 mg PO DAILY Rx Instructions: TAKE ONE TABLET BY MOUTH ONCE DAILY Discontinued venlafaxine 75 mg tablet 150 mg PO BID Qty: 120 3RF Rx Instructions: Take two tablets in the morning and afternoon at 2 PM Discharge Orders: Discharge Order (Routine); Ordered 03/31/24 Ordered By: Sukh Ramirez Referrals: Sandra Haywood FNP [Nurse Practitioner] - 04/17/24 2:00 pm Symone Kaur NP [Primary Care Provider] - 04/07/24 9:15 am Discharge Diet: Usual diet Discharge Activity: Increase activity as tolerated Patient Instructions: Diltiazem (By mouth), Supraventricular Tachycardia (DC), Supraventricular Tachycardia (GEN), Opioid Safety Activity Restrictions/Additional Instructions: You had several runs of SVT most recently difficult to convert in the emergency department. I think this is exacerbated by taking high dose venlafaxine twice a day. I have lowered your dose to 75 mg twice a day. In addition I have added diltiazem 120 mg extended release tablet once daily. You may start low-level exercise to try and lose some weight and increase the health of your heart. Try to do 1 mile at a pace which gives you a heart rate about 110 during exercise. If you are still having runs of SVT we would need to raise your diltiazem dose to 240 but in order to do that we would likely need to lower your prazosin to 1 mg. I hesitate to make too many changes to your bipolar disorder treatment as I do not want to put you into depression or anxiety Lastly if this persists you should see a letter stamping machine operator that specializes in electrical conduction. That would be an EP letter stamping machine operator Discharge Attestations Time Spent in Discharge Care*: greater than 30 min Quality Metrics Clinical Quality Measures [ No reported AMI, CVA or VTE this stay] Coding Level of Care Code 49610 Diagnoses SVT (supraventricular tachycardia) I47.10 Bipolar disorder, in full remission, most recent episode depressed F31.76 Obesity (BMI 30.0-34.9) E66.811 Time Spent (min) 50
[2024-03-31 11:00] VITALS: BP 128/83; PULSE 92; RESP 19; O2SAT 96
[2024-03-31 11:58] VITALS: BP 128/83
--- NOTE | 2024-03-31 12:27 | PC.NURSE ---
Discharge instructions given to patient. IV removed with catheter intact. Patient verbalized discharge instructions. Patient left via wheelchair to private auto with .
== END 2024-03-31 12:28 | disposition home or self-care (01) ==
LOC: ER 16:41 → ER IP 17:08 → CSU 18:34
PROVIDERS: Admitting Provider Internal Medicine; Emergency Provider Family Medicine; PCP Nurse Practitioner Family; Visit Provider Internal Medicine
DX: I47.10 Supraventricular tachycardia, unspecified (principal); F31.76 Bipolar disorder, in full remission, most recent episode depressed; E66.9 Obesity, unspecified; Z68.34 Body mass index [BMI] 34.0-34.9, adult; Z79.899 Other long term (current) drug therapy; Z90.710 Acquired absence of both cervix and uterus; Z87.891 Personal history of nicotine dependence
CPT/HCPCS: 36415; 71045; 80048; 80053; 83735; 84100; 84443; 84484; 85025; 93005; 93306; 96365; 96366; 96375; 96376; 99285; G0378; J0153; J3490

== ENCOUNTER → 2024-04-17 13:14 | Outpatient (BNVA) | payer MEDICAID, SELFPAY | PROVIDERS: PCP Nurse Practitioner Family; Visit Provider Nurse Practitioner Family | DX: I47.10 Supraventricular tachycardia, unspecified (principal); Z87.891 Personal history of nicotine dependence | CPT/HCPCS: 99214 ==

== ENCOUNTER → 2024-04-21 12:22 | Outpatient (BNVA) | payer MEDICAID, SELFPAY | PROVIDERS: PCP Nurse Practitioner Family; Referring Provider Nurse Practitioner Family; Visit Provider Specialist | DX: G43.909 Migraine, unspecified, not intractable, without status migrainosus (principal); G43.711 Chronic migraine without aura, intractable, with status migrainosus; G24.3 Spasmodic torticollis | CPT/HCPCS: 99204 ==

== ENCOUNTER → 2024-06-29 14:21 | Outpatient (BNVA) | payer MEDICAID, SELFPAY | PROVIDERS: PCP Nurse Practitioner Family; Referring Provider Nurse Practitioner Family; Visit Provider Specialist | DX: G43.711 Chronic migraine without aura, intractable, with status migrainosus (principal); G24.3 Spasmodic torticollis | CPT/HCPCS: 99213 ==

== ENCOUNTER → 2024-07-05 13:37 | Outpatient (BNVA) | payer MEDICAID, SELFPAY | PROVIDERS: PCP Nurse Practitioner Family; Visit Provider Internal Medicine Cardiovascular Disease | DX: I47.10 Supraventricular tachycardia, unspecified (principal); Z87.891 Personal history of nicotine dependence | CPT/HCPCS: 99214 ==

== ENCOUNTER 2024-07-12 20:00 | Outpatient (CLI) | payer MEDICAID, SELFPAY | END 2024-07-12 20:01 | disposition home or self-care (01) | LOC: SLEEP 07-13 05:15 | PROVIDERS: PCP Nurse Practitioner Family; Referring Provider Nurse Practitioner Family; Visit Provider Internal Medicine Pulmonary Disease | DX: G47.30 Sleep apnea, unspecified (principal); G47.36 Sleep related hypoventilation in conditions classified elsewhere | CPT/HCPCS: 95810 ==

== ENCOUNTER → 2024-08-29 14:08 | Outpatient (BNVA) | payer MEDICAID, SELFPAY | PROVIDERS: PCP Nurse Practitioner Family; Referring Provider Nurse Practitioner Family; Visit Provider Specialist | DX: G43.711 Chronic migraine without aura, intractable, with status migrainosus (principal); G24.3 Spasmodic torticollis | CPT/HCPCS: 99213 ==